=== PATIENT | male | born 1970 | race Hispanic/Latino ===

== ENCOUNTER 2022-06-11 07:23 | Day surgery (SDC) | payer OTHER ==
[2022-06-11] MEDS ORDERED: NA CHLORIDE 0.9% 1,000 ML ONE (07:47)
[2022-06-11 08:20] LABS: Absolute Lymphocytes (CBC) 0.7 K/uL (0.7-4.9); Lymphocytes % 11.9 % (15.3-44.8); MCV 79.2 fL (80-100); RBC Red Blood Cell Count 3.67 M/uL (4.33-5.43)
[2022-06-11 08:47] LABS: Potassium 3.6 mmol/L (3.5-5.1)
[2022-06-11] MEDS ORDERED: LIDOCAINE 1% MPF 5 ML VIAL ONE (08:49)
[2022-06-11] MEDS ORDERED: propofoL 200 MG/20 ML VIAL IV ONE ×2 (08:49→09:08)
[2022-06-11 10:17] VITALS: BP 135/83; TEMP 98.5; O2SAT 98
--- NOTE | 2022-06-11 10:28 | OP ---
Surgeon: Yaw Schrader MD Procedure Performed: Colonoscopy. Indication For Procedure: Anemia screening. Plan For Anesthesia: Monitored anesthesia care. Complexity: High due to the patient's comorbidities, cardiovascular history as well as morbid obesit y. Technique: After obtaining informed consent from the patient and explaining risks and complications, which include, but are not limited to bleeding, infection, perforation, and anesthesia complications . The patient was placed in the left lateral position. Sedation was given. From then on, digital r ectal exam was performed. The endoscope was advanced into the rectum and carefully guided up till th e cecum. The cecum was identified by the ileocecal valve and appendiceal orifice. Then, scope gradu ally withdrawn while carefully examining the mucosa. Quality of prep according to [place] Prep Score was 1 + 2 + 2, which is equal to 5 x 9. Scope withdrawal time was 20 minutes due to findings. The e ntire colon was quite redundant. Findings: 1.Redundant colon. 2.A 2 cm pedunculated polyp seen in the rectum, removed completely with snare polypectomy. A 2 cm s robin-pedunculated polyp seen in the descending colon, completely resected with snare polypectomy. Two 1 cm polyps seen in the transverse colon, completely removed with snare polypectomy. In the ascendi ng colon, 2 polyps were seen. One of them was 5 mm. This was removed by hot biopsy polypectomy; how ever, there was another larger 1 around 1.5 cm. This was removed with snare polypectomy. Complications: None. Tolerance To Anesthesia: Excellent. Postoperative Diagnoses: Multiple large polyps, redundant colon. Plan: 1.Await pathology results. 2.EGD, further workup for anemia. 3.Staged colonoscopy in 1 year due to multiple large polyps. 4.Avoid NSAIDs at this time. US/MODL Voice ID: [id number] Report ID: [id number]
== END 2022-06-11 10:18 | disposition home or self-care (01) ==
LOC: OR 07:23
PROVIDERS: ATTEND Internal Medicine Gastroenterology
PROC: 0DBL8ZX Excision of Transverse Colon, Via Natural or Artificial Opening Endoscopic, Diagnostic (ICD-10-PCS; 2022-06-11)
PROC: 0DBP8ZX Excision of Rectum, Via Natural or Artificial Opening Endoscopic, Diagnostic (ICD-10-PCS; 2022-06-11)
PROC: 0DBM8ZX Excision of Descending Colon, Via Natural or Artificial Opening Endoscopic, Diagnostic (ICD-10-PCS; 2022-06-11)
PROC: 0DBK8ZX Excision of Ascending Colon, Via Natural or Artificial Opening Endoscopic, Diagnostic (ICD-10-PCS; principal; 2022-06-11 08:30)
DX: D64.9 Anemia, unspecified (principal); E66.01 Morbid (severe) obesity due to excess calories; Z68.42 Body mass index [BMI] 45.0-49.9, adult; D12.4 Benign neoplasm of descending colon; D12.2 Benign neoplasm of ascending colon; D12.3 Benign neoplasm of transverse colon; Q43.8 Other specified congenital malformations of intestine
CPT/HCPCS: 85025; 80048; 36415; 82947 ×2; 88305; 45385; 45384; J2704 ×2; J2001; J7030

== ENCOUNTER 2022-06-12 09:37 | Inpatient (IN) | payer OTHER ==
--- OUTSIDE RECORDS SUMMARY | 2022-06-12 09:40 | XMS REPORT | Continuity of Care Document ---
:1970 Author Organization [facility] t Address [address] [place] [address] Care Team Providers Name Role Phone Derik Wood Attending Clinician REI MORELOS Attending Clinician Unavailable REI MORELOS Attending Clinician Unavailable 1, [facility] Attending Clinician Unavailable Rei Morelos MD Attending Clinician Only, [facility] Test Attending Clinician Unavailable Payers Payer Name Policy Type Policy Number Effective Date Expiration Date Nitin LIAO [facility] [id number] 2020 00:00:00 HMO Problems Condition Condition Condition Status Onset Resolution Last Treating Co mments Source Name Details Category Date Date Treatment Clinician Date SHORTNESS SHORTNESS Diagnosis Active 2013-03-17 Memoria OF BREATH OF BREATH 03-16 00:18:00 l Active 00:00: Johan 03/16/2013 00 [facility] [place] DYSPNEA DYSPNEA Diagnosis Active 2013-03-17 Memoria Active 03-16 00:18:00 l 03/16/2013 00:00: Luke barragan [place] CHF - CHF - Problem Resolve 2013-03-19 Mem oria Congestive Congestive d 22:02:31 l heart heart [place] failure failure Resolved Problem 03/19/2013 [place] Hypertensi Hypertens Problem Resolve 2013-03-19 Memoria on ion d 22:02:31 l Resolved [place] Problem 03/19/2013 [place] Hyperthyro Hyperthyr Problem Resolve 2013-03-19 Memoria idism oidism d 22:02:31 l Resolved Johan Problem 03/19/2013 [place] 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 l 21:43:39 l (finding) hemianopia Her paredes (finding) Active Problem 11/14/2021 [facility] Chronic Chronic Problem Active 2021-11-14 Me moria renal renal 21:43:39 l failure failure [place] syndrome syndrome (disorder) (disorder) Active Problem 11/14/2021 [facility] Congestive Congestiv Problem Active 2021-11-14 Memoria heart e heart 21:43:39 l failure failure Johan (disorder) (disorder) Active Problem 11/14/2021 [facility] Hypertensi Hypertens Problem Active 2021-11-14 Memoria ve reid 21:43:39 l disorder, disorder, Herm violetta systemic systemic arterial arterial (disorder) (disorder) Active Problem 11/14/2021 [facility] Diabetes Diabetes Problem Active 2021-11-14 Memoria mellitus mellitus 21:43:39 l type 2 type 2 Johan (disorder) (disorder) Active Problem 11/14/2021 [facility] Allergies, Adverse Reactions, Alerts Allergy Allergy Status Severity Reaction(s) Onset Inactive Treating Comm ents Source Name Type Date Date Clinician NO KNOWN Drug Active [facility] ALLERGIE Class [facility] Social History Social Habit Start Date Stop Date Quantity Comments Source Exposure to Not sure [facility] SARS-CoV-2 (event) [facility] Social History 2021-09-20 2021-09-[address] [facility] [address] 19:54:35 19:54:35 Sex Assigned At [birth year] [facility] 00:00:00 00:00:00 [facility] Smoking Status Start Date Stop Date Source Unknown if ever smoked [facility] Medications Ordered Filled Start Stop Current Ordering Indication Dosage Frequency Signature Comments Components Source Medication Medication Date Date Medication? Clinician (SIG) Name Name Hydralazine Yes 100 mg = 1 Memoria Hydrochlori 3-17 tab, PO, l de 100 MG 20:07: BID, # 60 Her paredes Oral Tablet 00 tab, 0 Refill(s) carvedilol Yes 12.5 mg = Me moria 12.5 mg 3-17 1 tab, PO, l oral tablet 20:07: BID, # 180 [place] 00 tab, 0 Refill(s) lisinopril Yes 40 mg = 1 Me moria 40 mg oral 3-17 tab, PO, l tablet 20:07: Daily, # Johan 00 30 tab, 0 Refill(s) amLODIPine Yes 5 mg = 1 Mem oria 5 mg oral 3-17 tab, PO, l tablet 20:07: Daily, # 30 tab, 0 Refill(s) 24 HR Yes 5 mg = 1 Memoria Glipizide 5 3-17 tab, PO, l MG Extended 20:07: Breakfast, # 30 tab, Tablet 1 Refill(s) Furosemide Yes 20 mg = 1 Me moria 20 MG Oral 3-17 tab, PO, l Tablet 20:07: Daily, # 30 tab, 0 Refill(s) lisinopril Yes Pierre R 40 mg, 2 Memoria 20 mg oral 03-17 Mcmillan tab, PO, l tablet 22:38: Daily, 30 Luke n 17 tab, Substituti on Allowed, TAB levothyroxi Yes Pierre R 100 Memoria ne 100 mcg 03-17 Mcmillan microgram, l (0.1 mg) 22:37: 1 tab, PO, Her paredes oral tablet 31 Daily, 30 tab, Substituti on Allowed, TAB hydrALAZINE Yes Pierre R 50 mg, 1 Memoria 50 mg oral 03-17 Mcmillan tab, PO, l tablet 22:37: TID, 08 tab, Substituti on Allowed, TAB hydrALAZINE Yes Pierre R 50 mg, 1 Memoria 50 mg oral 03-17 Mcmillan tab, PO, l tablet 22:37: TID, 90 00 tab, Substituti on Allowed, TAB doxazosin 4 Yes Pierre R 4 mg, 1 Memoria mg oral 03-17 Mcmillan tab, PO, l tablet 22:36: Daily, 30 Luke n 39 tab, Substituti on Allowed, TAB carvedilol Yes Pierre R 12.5 mg, 1 Memoria 12.5 mg 03-17 Mcmillan tab, PO, l oral tablet 22:36: BID, 60 Her paredes 26 tab, Substituti on Allowed, TAB lisinopril No Dony D 40 mg, 2 Memoria 03-17 Dichoso tab, l 14:00: Route: PO, Drug form: TAB, Daily, Dosing Weight 150.54, kg, Start date: 03/17/13 9:00:00, Duration: 30 day, Stop date: 04/15/13 9:00:00 hydrALAZINE 2012-0 No Yassir 50 mg, 2 Memoria 50 mg oral 03-17 Ahmed tab, l tablet 14:00: Sonbol Route: PO, Her Drug form: TAB, TID, Dosing Weight 150.54, kg, Start date: 03/17/13 9:00:00, Duration: 30 day, Stop date: 04/15/13 17:00:00 carvedilol 2012-0 No Dony D 12.5 mg, 1 Memoria 03-17 Dichoso tab, l 14:00: Route: PO, Johan 00 Drug form: TAB, BID, Dosing Weight 150.54, kg, Start date: 03/17/13 9:00:00, Duration: 30 day, Stop date: 04/15/13 17:00:00 doxazosin 2012-0 No Dony D 4 mg, 4 Me moria 03-17 Dichoso tab, l 14:00: Route: PO, Drug form: TAB, Daily, Dosing Weight 150.54, kg, Start date: 03/17/13 9:00:00, Duration: 30 day, Stop date: 04/15/13 9:00:00 Saline 2012-0 No Dony D 5 ml, Memoria Flush 0.9% 03-17 Dichoso Route: l 14:00: IVP, Drug Form: INJ, Dosing Weight 159.091, kg, Q12H, Start date: 03/17/13 9:00:00, Duration: 30 day, Stop date: 04/15/13 21:00:00 aspirin 81 2012-0 No Dony D 81 mg, 1 Memoria mg tablet, 03-17 Dichoso tab, l enteric 14:00: Route: PO, Herm violetta Drug form: ECTAB, Daily, Dosing Weight 159.091, kg, Start date: 03/17/13 9:00:00, Duration: 30 day, Stop date: 04/15/13 9:00:00 hydrALAZINE 2012-0 No Yassir 75 mg, 3 Memoria 25 mg oral 03-17 Ahmed tab, l tablet 14:00: Sonbol Route: PO, Her paredes Drug form: TAB, TID, Dosing Weight 150.54, kg, Start date: 03/17/13 9:00:00, Duration: 30 day, Stop date: 04/15/13 17:00:00 potassium 2012-0 No Dony D 40 mEq, 2 Memoria chloride - Dichoso tab, l 14:00: Route: PO, Johan Drug form: ERTAB, Daily, Dosing Weight 150.54, kg, Start date: 03/17/13 9:00:00, Duration: 2 day, Stop date: 03/18/13 9:00:00 Lasix 2012-0 No Yassir 40 mg, 4 Memori a 03-17 Ahmed mL, Route: l 13:00: Sonbol IV, Drug [place] 00 form: INJ, Q8H, Dosing Weight 150.54, kg, Start date: 03/17/13 8:00:00, Duration: 2 day, Stop date: 03/19/13 0:00:00 levothyroxi 2012-0 No Dony D 100 Mem oria ne 03-17 Dichoso microgram, l 12:30: 1 tab, [place] 00 Route: PO, Drug form: TAB, Before Breakfast, Dosing Weight 150.54, kg, Start date: 03/17/13 7:30:00, Duration: 30 day, Stop date: 04/15/13 7:30:00 hydrALAZINE 2012-0 No Dony D 10 mg, 0.5 Memoria 03-17 Dichoso mL, Route: l 06:11: IV, Drug [place] 00 form: INJ, ONCE, Dosing Weight 150.54, kg, Start date: 03/17/13 1:11:00, Stop date: 03/17/13 1:11:00 Saline 2012-0 No Dony D 5 ml, Memoria Flush 0.9% 03-17 Dichoso Route: l 05:43: IVP, Drug [place] 00 Form: INJ, Dosing Weight 159.091, kg, PRN, PRN Line Flush, Start date: 03/17/13 0:43:00, Duration: 30 day, Stop date: 04/16/13 0:42:00 nitroglycer No Dony D 0.4 mg, 1 Memoria in SL Tab 03-17 Dichoso tab, l 05:43: Route: SL, Johan Drug form: TAB, Q5Min, Dosing Weight 159.091, kg, PRN Chest Pain, Start date: 03/17/13 0:43:00, Duration: 3 doses or times, Stop date: Limited # of times levothyroxi No Pierre R 100 Memoria ne 100 mcg 03-17 Mcmillan microgram, l (0.1 mg) 03:10: 1 tab, PO, Her paredes oral tablet 15 Daily, 30 tab, Substituti on Allowed, TAB Klor-Con No 20 mEq, 1 Raul katerina M20 oral 03-17 tab, PO, l tablet, 03:09: Daily, Johan extended 34 Substituti release on Allowed, TAB furosemide No 80 mg, 1 Mem oria 80 mg oral 03-17 tab, PO, l tablet 03:09: Daily, 30 Luke barragan 13 tab, Substituti on Allowed, TAB carvedilol No Pierre R 12.5 mg, 1 Memoria 12.5 mg 03-17 Mcmillan tab, PO, l oral tablet 03:08: BID, 180 He rmvioletta 58 tab, Substituti on Allowed, TAB doxazosin 4 No Pierre R 4 mg, 1 Memoria mg oral 03-17 Mcmillan tab, PO, l tablet 03:08: Daily, 30 Luke barragan 32 tab, Substituti on Allowed, TAB hydrALAZINE No Pierre R 50 mg, 1 Memoria 50 mg oral 03-17 Mcmillan tab, PO, l tablet 03:07: TID, Johan 52 Substituti on Allowed, TAB lisinopril No Dony D 40 mg, 1 Memoria 40 mg oral 03-17 Dichoso tab, PO, l tablet 03:07: Daily, 30 Luke n 27 tab, Substituti on Allowed, TAB clonidine No Isaebl 0.2 mg, 2 Memoria 03-17 [place] Fraire tab, l 02:31: Route: Johan PIERRE Drug form: TAB, ONCE, kg, Start date: 03/16/13 21:31:00, Stop date: 03/16/13 21:31:00 furosemide 2012-0 No Isabel 60 mg, 6 Memoria 03-17 Norberto Fraire mL, Route: l 02:31: IVP, Drug [place] 00 form: INJ, ONCE, kg, Priority: STAT, Start date: 03/16/13 21:31:00, Stop date: 03/16/13 21:31:00 aspirin 325 2012- No Isabel 325 mg, 1 Memoria mg tablet 03-17 Norberto Fraire tab, l 02:31: Route: PO, [place] 00 Drug form: TAB, ONCE, kg, Priority: STAT, Start date: 03/16/13 21:31:00, Stop date: 03/16/13 21:31:00 Saline 2012- No Isabel 5 ml, Memoria Flush 0.9% 03-17 Norberto Fraire Route: l 02:31: IVP, Drug [place] Form: INJ, kg, PRN, PRN Line Flush, Start date: 03/16/13 21:31:00, Duration: 30 day, Stop date: 04/15/13 21:30:00 Vital Signs Vital Name Observation Time Observation Value Comments Source Systolic (mm Hg) 2021-09-20 19:50:00 Raul miguel Johan Diastolic (mm Hg) 2021-09-20 19:50:00 [facility] orial Johan Heart Rate 2021-09-20 19:50:00 [facility] Johan Respitory Rate 2021-09-20 19:50:00 [facility] al Johan Height 2021-09-20 19:50:00 167.64 cm [facility] Weight 2021-09-20 19:50:00 [facility] BMI Calculated 2021-09-20 19:50:00 Memori al [place] Systolic (mm Hg) 2013-03-17 20:43:00 Raul rial [place] Diastolic (mm Hg) 2013-03-17 20:43:00 [facility] orial [place] Heart Rate 2013-03-17 20:43:00 [facility] [place] Respitory Rate 2013-03-17 20:43:00 Chanda Hermosilloann Temperature Oral (F) 2013-03-17 20:43:00 [facility] 2013-03-17 17:36:00 Raul rial [place] Diastolic (mm Hg) 2013-03-17 17:36:00 Mem orial [place] Respitory Rate 2013-03-17 17:36:00 Memori al [place] Heart Rate 2013-03-17 17:36:00 [facility] Johan Temperature Oral (F) 2013-03-17 17:36:00 96.5 F [facility] Johan Heart Rate 2013-03-17 14:06:00 [facility] Jhoan Temperature Oral (F) 2013-03-17 14:06:00 98.4 F [facility] Johan Diastolic (mm Hg) 2013-03-17 14:06:00 Mem orial [place] Systolic (mm Hg) 2013-03-17 14:06:00 Raul rial [place] Respitory Rate 2013-03-17 14:06:00 Memori al [place] Weight 2013-03-17 05:52:00 [facility] [place] Height 2013-03-17 05:52:00 170.18 cm [facility] Johan Height 2013-03-17 05:38:00 172.72 cm [facility] Johan Weight 2013-03-17 05:38:00 [facility] [place] Procedures This patient has no known procedures. Encounters Start End Encounter Admission Attending Care Care Encounter Source Date/Time Date/Time Type Type Clinicians Facility Department ID 2021-11-12 2021-11-12 Ambulatory nullFlavo MNA [id number] Memoria 15:15:00 15:15:00 Pre-Reg r Neurology 02 dennis Prado 2021-11-12 2021-11-12 Outpatient MHIE MHANIRUDH [id number] Memoria 10:15:00 10:15:00 02 dennis Prado 2021-11-12 2021-11-12 Outpatient JHOAN WoodSCHEMELIA [id number] 10:15:00 10:15:00 Derik 02 James 2021-11-01 2021-11-01 Ambulatory nullFlavo MNA [id number] Memoria 16:45:00 16:45:00 Pre-Reg r Neurology 01 dennis Prado 2021-11-01 2021-11-01 Outpatient MHIE THIENIE [id number] Memoria 11:45:00 11:45:00 01 dennis Johan 2021-11-01 2021-11-01 Outpatient JHOAN Wood [facility] [id number] 11:45:00 11:45:00 Derik 01 James 2021-09-20 2021-09-21 Outpatient nullFlavo MNA [id number] Memoria 19:45:00 04:59:59 r Neurology 00 l [place] Prado 2021-09-20 2021-09-20 Outpatient JHOAN WoodSCHEMELIA [id number] 14:45:00 23:59:59 Derik 00 James 2021-09-20 2021-09-20 Outpatient [facility] [id number] Memoria 14:45:00 14:45:00 00 l Johan 2021-02-17 2021-02-17 Outpatient R REI MORELOS [facility] [id number] Univers 19:30:00 19:30:00 [facility] 2021-02-16 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 [id number] Univers 15:14:15 17:44:15 Visit Rei Morelos [place] [id number] 10 [place] of [place] [id number] [facility] [id number] [facility] [address] 2021-02-14 2021-02-14 Laboratory Only, [facility] Test [facility] [id number]. [id number] Univers 10:49:06 11:04:06 Only Rei Morelos [place] 350.1.13. 10 [place] [id number] [facility] [id number] [facility] [address] 2021-02-14 2021-02-14 Outpatient R [facility] [id number] Univers 10:45:00 10:45[facility] 2013-03-16 2013-03-17 OU nullFlavo [id number] Memoria 23:33:00 18:28:00 r Pepe 00 l Johan Results Test Description Test Time Test Comments Results Result Comments Source CHEMISTRY 2013-03-17 15:23:00 Test Item Value Reference Range Interpretation Comme nts T4 Free (test code = T4 Free) 1.11 0.76-1.46 N [facility]tbdfkzHESSYCPIG3438-09-00 15:23:00 Test Item Value Reference Range Interpretation Comments CK MB Index (test 2.3 See_Comment N [Automate d message] The code = CK MB Index) system w [employer] generated this result transmit dariana reference range : <=2.5. The reference range was not used to interpr et this result as obie l/abnormal. [facility] LakeFuvmfqdANABZWWEI6034-61-04 15:23:00 Test Item Value Reference Range Interpretation Comments CK MB (test code = CK MB) 4.2 0.5-3.6 H [facility] LakeJbcrduiZBNETIXYS5719-52-13 15:23:00 Test Item Value Reference Range Interpretation Comments Troponin-I (test code no gt See_Comment N [Auto mated message] The = Troponin-I) system which g enerated this result transmit dariana reference range : <=0.40. The reference r leonidas was not used to interpr et this result as obie l/abnormal. [facility] LakeAgwlvwgKWGKFMLFJ7033-02-95 15:23:00 Test Item Value Reference Range Interpretation Comments Total CK (test code = Total CK) 184 12-191 N [facility] LakeLeucsszZDWSFIQGN3110-54-24 08:05:00 Test Item Value Reference Range Interpretation Comments CK MB Index (test 2.5 See_Comment N [Automate d message] The code = CK MB Index) system w [employer] generated this result transmit dariana reference range : <=2.5. The reference range was not used to interpr et this result as obie l/abnormal. [facility] LakeYaszevxMMOZPWTCD9323-23-95 08:05:00 Test Item Value Reference Range Interpretation Comments CK MB (test code = CK MB) 4.3 0.5-3.6 H [facility] LakeTsqpzasKZRQSMIFI7691-11-05 08:05:00 Test Item Value Reference Range Interpretation Comments Troponin-I (test code 0.02 See_Comment N [Auto mated message] The = Troponin-I) system which g enerated this result transmit dariana reference range : <=0.40. The reference r leonidas was not used to interpr et this result as obie l/abnormal. [facility] LakeZrhxihoAIHWMEEDJ2442-54-01 08:05:00 Test Item Value Reference Range Interpretation Comments Total CK (test code = Total CK) 175 12-191 N [facility] HeightsLxngpmyBXBURIQRCS2455-79-70 04:00:00 Test Item Value Reference Range Interpretation Comments UA Sq Epi (test code Occasional /LPF N = UA Sq Epi) (03/16/2013 23:00:00) [facility] Center[facility]qollcsKQBIUYSQPB7306-20-39 04:00:00 Test Item Value Reference Range Interpretation Comments UA WBC (test code = UA 3-5 /HPF (03/16/2013 N WBC) 23:00:00) [facility]YfumeyrQYQTKRIOMI1659-66-11 04:00:00 Test Item Value Reference Range Interpretation Comments UA Bacteria (test code Occasional /HPF N = UA Bacteria) (03/16/2013 23:00:00) [facility]XuhqnxgUKTWAEHJBO6446-44-19 04:00:00 Test Item Value Reference Range Interpretation Comments UA RBC (test None Seen See_Comment N [Automated mes moises] code = UA RBC) (03/16/2013 The system ich 23:00:00) generated this result transmitted ref erence range: <=2. The reference range was not used to int erpret this result as normal/abnormal . [facility] HeightsNfxubjhDOUQZISYGA0524-96-62 04:00:00 Test Item Value Reference Range Interpretation Comments UA Leuk Est (test Negative (03/16/2013 N code = UA Leuk Est) 23:00:00) [facility] CenterVzvwvlgKGRPEMSILU0461-75-01 04:00:00 Test Item Value Reference Range Interpretation Comments UA Nitrite (test code Negative (03/16/2013 N = UA Nitrite) 23:00:00) [facility] HeightsPrhapenPPRPSGUOGB8972-12-33 04:00:00 Test Item Value Reference Range Interpretation Comments UA Urobilinogen (test code = UA 0.2 0.1-1.0 N Urobilinogen) [facility]KrlhqlqQHNRCXVTSD4833-09-80 04:00:00 Test Item Value Reference Range Interpretation Comments UA Blood (test code = Negative (03/16/2013 N UA Blood) 23:00:00) [facility] HeightsOudakbtLCQPZUDVVM7865-98-32 04:00:00 Test Item Value Reference Range Interpretation Comments UA Bili (test code = Negative *NA*(03/16/2013 UA Bili) 23:00:00) [facility]KxqexecUOMIVPCBRT5976-65-65 04:00:00 Test Item Value Reference Range Interpretation Comments UA pH (test code = UA pH) 7.0 1 5.0-8.0 N [facility] CenterPvkqhfzJBYQSYJZVB6073-62-76 04:00:00 Test Item Value Reference Range Interpretation Comments UA Spec Grav (test code = UA Spec 1.010 1 N Grav) [facility] CenterRudqptoRZISIFONSK5504-07-58 04:00:00 Test Item Value Reference Range Interpretation Comments UA Turbidity (test code = Clear (03/16/2013 N UA Turbidity) 23:00:00) [facility] CenterKgdympkZONXZTPUGC8234-48-09 04:00:00 Test Item Value Reference Range Interpretation Comments UA Color (test code = Yellow *NA*(03/16/2013 UA Color) 23:00:00) [facility] CenterVseqqidTTZRIKMGKF6082-70-74 04:00:00 Test Item Value Reference Range Interpretation Comments UA Protein (test code Negative mg/dL N = UA Protein) (03/16/2013 23:00:00) [facility] CenterGfscknkUTKKEWOWQN3677-84-21 04:00:00 Test Item Value Reference Range Interpretation Comments UA Ketones (test code Negative mg/dL = UA Ketones) *NA*(03/16/2013 23:00:00) [facility] CenterBgghgcuEIFPUZHIJT7365-68-94 04:00:00 Test Item Value Reference Range Interpretation Comments UA Glucose (test code Negative mg/dL N = UA Glucose) (03/16/2013 23:00:00) [facility] LakeKvjluwnCADWBZGNP3101-61-21 03:00:00 Test Item Value Reference Range Interpretation Comments Sodium Lvl (test code = Sodium Lvl) 141 135-145 N [facility] LakeOyyzdiwCRRNLMCXW4344-63-25 03:00:00 Test Item Value Reference Range Interpretation Comments BUN (test code = BUN) 21 7-22 N [facility] LakeYksbwagOGMAPJYPW0016-42-53 03:00:00 Test Item Value Reference Range Interpretation Comments Creatinine Lvl (test code = Creatinine 1.9 0.5-1.4 H Lvl) [facility] LakeNlonalzDUHBHEHJG6088-22-90 03:00:00 Test Item Value Reference Range Interpretation Comments Alk Phos (test code = Alk Phos) 100 39-136 N [facility] LakeBxfttzjMNIQTBUFE5175-40-62 03:00:00 Test Item Value Reference Range Interpretation Comments Bili Total (test code = Bili Total) 0.2 0.2-1.3 N [facility] LakeYkmrwohIAIEJWXEW4011-60-58 03:00:00 Test Item Value Reference Range Interpretation Comments Albumin Lvl (test code = Albumin Lvl) 3.5 3.5-5.0 N [facility] LakeCevmfeoQTVZYZDJD2756-86-78 03:00:00 Test Item Value Reference Range Interpretation Comments ALT (test code = ALT) 34 See_Comment N [Auto mated message] The system which ge nerated this result transmit dariana reference range : <=65. The reference range was not used to interpr et this result as obie l/abnormal. [facility] LakeKddngagRAUAGTMKQ7232-13-61 03:00:00 Test Item Value Reference Range Interpretation Comments Glucose Lvl (test code = Glucose Lvl) 121 70-99 H [facility] LakeJvyezllMYLJYJHHL2406-54-63 03:00:00 Test Item Value Reference Range Interpretation Comments Globulin (test code = Globulin) 3.5 2.0-4.0 N [facility] LakeRlumfkrVSRQQQACV5054-83-34 03:00:00 Test Item Value Reference Range Interpretation Comments A/G Ratio (test code = A/G Ratio) 1.0 0.7-1.6 N [facility] LakeRdqnnmnSXJRCJJVN4746-65-91 03:00:00 Test Item Value Reference Range Interpretation Comments AGAP (test code = AGAP) 11.4 10.0-20.0 N [facility] LakeOcvmkrnAUWUEBRIP4364-61-85 03:00:00 Test Item Value Reference Range Interpretation Comments B/C Ratio (test code = B/C Ratio) 11 6-25 N [facility] LakeQuvzyxiQXJUWMQJB9272-57-89 03:00:00 Test Item Value Reference Range Interpretation Comments AST (test code = AST) 18 See_Comment N [Auto mated message] The system which ge nerated this result transmit dariana reference range : <=37. The reference range was not used to interpr et this result as obei l/abnormal. [facility] LakePqarxyeWDQKKQEAE3038-00-63 03:00:00 Test Item Value Reference Range Interpretation Comments BNP (test code = BNP) 58 N [facility] LakeBqjnuigOSEWPIXCH0516-02-19 03:00:00 Test Item Value Reference Range Interpretation Comments Troponin-I (test code 0.02 See_Comment N [Auto mated message] The = Troponin-I) system which g enerated this result transmit dariana reference range : <=0.40. The reference r leonidas was not used to interpr et this result as obie l/abnormal. [facility] L[id number] 03:00:00 Test Item Value Reference Range Interpretation Comments CK MB (test code = CK MB) 5.4 0.5-3.6 H [facility] Lake[id number] 03:00:00 Test Item Value Reference Range Interpretation Comments CK MB Index (test 2.6 See_Comment H [Automate d message] The code = CK MB Index) system w [facility] generated this result transmit dariana reference range : <=2.5. The reference range was not used to interpr et this result as obie l/abnormal. [facility] RockFhxafzwLWNJZVOGOO0308-74-77 03:00:00 Test Item Value Reference Range Interpretation Comments RBC (test code = RBC) 4.49 4.70-6.10 L [facility] RockNbcwxriFKCRGIUOVE3513-79-97 03:00:00 Test Item Value Reference Range Interpretation Comments Hgb (test code = Hgb) 12.1 14.0-18.0 L [facility] RockDiufirwYLDIJWGBDY6381-28-45 03:00:00 Test Item Value Reference Range Interpretation Comments Hct (test code = Hct) 37.7 42.0-54.0 L [facility] RockEwklnknCOBFBERJDV7840-31-94 03:00:00 Test Item Value Reference Range Interpretation Comments MPV (test code = MPV) 8.5 7.4-10.4 N [facility] RockRuqgauyWQEJOFAXES1730-97-37 03:00:00 Test Item Value Reference Range Interpretation Comments WBC (test code = WBC) 9.8 3.7-10.4 N [facility] RockKrlkdzpRUILQJQUCF6582-58-99 03:00:00 Test Item Value Reference Range Interpretation Comments MCV (test code = MCV) 84.0 80.0-94.0 N [facility] RockSkkxntlVAFOSDCSQE1449-80-22 03:00:00 Test Item Value Reference Range Interpretation Comments MCH (test code = MCH) 27.0 pg 27.0-31.0 N [facility] RockHutgewtQLKDQJECZW7863-54-50 03:00:00 Test Item Value Reference Range Interpretation Comments MCHC (test code = MCHC) 32.2 32.0-36.0 N [facility] [id number] 03:00:00 Test Item Value Reference Range Interpretation Comments RDW (test code = RDW) 14.0 11.5-14.5 N [facility] [id number] 03:00:00 Test Item Value Reference Range Interpretation Comments Platelet (test code = Platelet) 257 133-450 N [facility] [id number] 03:00:00 Test Item Value Reference Range Interpretation Comments Plt Morph (test code = Normal (03/16/2013 N Plt Morph) 22:00:00) [facility] [id number] 03:00:00 Test Item Value Reference Range Interpretation Comments Segs (test code = Segs) 68.6 45.0-75.0 N [facility] [id number] 03:00:00 Test Item Value Reference Range Interpretation Comments Lymphocytes (test code = Lymphocytes) 18.5 20.0-40.0 L [facility] [id number] 03:00:00 Test Item Value Reference Range Interpretation Comments Monocytes (test code = Monocytes) 9.5 2.0-12.0 N [facility] [id number] 03:00:00 Test Item Value Reference Range Interpretation Comments Eosinophils (test code = 3.0 See_Comment N [A utomated message] The Eosinophils) system which ge nerated this result tra nsmitted reference range : <=4.0. The reference r leonidas was not used to int erpret this result as normal/abnormal . [facility] [id number] 03:00:00 Test Item Value Reference Range Interpretation Comments Basophils (test code = 0.4 See_Comment N [Aut omated message] The Basophils) system which ge nerated this result tra nsmitted reference range : <=1.0. The reference r leonidas was not used to int erpret this result as normal/abnormal . [facility] [id number] 03:00:00 Test Item Value Reference Range Interpretation Comments Segs-Bands # (test code = Segs-Bands #) 6.7 1.5-8.1 N [facility] [id number] 03:00:00 Test Item Value Reference Range Interpretation Comments Lymphocytes # (test code = Lymphocytes 1.8 1.0-5.5 N #) [facility] [id number] 03:00:00 Test Item Value Reference Range Interpretation Comments Monocytes # (test code 0.9 See_Comment H [Aut omated message] The = Monocytes #) system which generated this result tra nsmitted reference range : <=0.8. The reference r leonidas was not used to int erpret this result as normal/abnormal . [facility] [id number] 03:00:00 Test Item Value Reference Range Interpretation Comments Eosinophils # (test code 0.3 See_Comment N [A utomated message] The = Eosinophils #) system whic h generated this result tra nsmitted reference range : <=0.5. The reference r leonidas was not used to int erpret this result as normal/abnormal . [facility] [id number] 03:00:00 Test Item Value Reference Range Interpretation Comments Basophils # (test code 0.0 See_Comment N [Aut omated message] The = Basophils #) system which generated this result tra nsmitted reference range : <=0.2. The reference r leonidas was not used to int erpret this result as normal/abnormal . [facility] [id number] 03:00:00 Test Item Value Reference Range Interpretation Comments Anisocyte (test code = 1+ *ABN*(03/16/2013 A Anisocyte) 22:00:00) [id number] 03:00:00 Test Item Value Reference Range Interpretation Comments Total CK (test code = Total CK) 211 12-191 H [facility] [id number] 03:00:00 Test Item Value Reference Range Interpretation Comments eGFR (test code = eGFR) 43 [facility] [id number] 03:00:00 Test Item Value Reference Range Interpretation Comments Chloride Lvl (test code = Chloride Lvl) 102 95-109 N [facility] [id number] 03:00:00 Test Item Value Reference Range Interpretation Comments CO2 (test code = CO2) 31 24-32 N [facility] [id number] 03:00:00 Test Item Value Reference Range Interpretation Comments Total Protein (test code = Total 7.0 6.4-8.4 N Protein) [facility] [id number] 03:00:00 Test Item Value Reference Range Interpretation Comments Calcium Lvl (test code = Calcium Lvl) 9.1 8.5-10.5 N [facility] [id number] 03:00:00 Test Item Value Reference Range Interpretation Comments Potassium Lvl (test code = Potassium 3.4 3.5-5.1 L Lvl) [facility]
[2022-06-12 10:09] LABS: Absolute Lymphocytes (CBC) 0.6 K/uL (0.7-4.9); Hematocrit 23.4 % (39.6-49.0); MCV 79.6 fL (80-100); MPV 7.2 fL (7.6-11.3); RBC Red Blood Cell Count 2.93 M/uL (4.33-5.43)
[2022-06-12 10:12] LABS: Protime INR 1.18
[2022-06-12 10:14] LABS: SARS-CoV-2 Antigen Rapid Res Negative (Negative)
[2022-06-12 10:24] LABS: Albumin 2.6 g/dL (3.4-5.0); Bilirubin Total 0.5 mg/dL (0.2-1.0); Potassium 3.8 mmol/L (3.5-5.1); Protein, Total 5.8 g/dL (6.4-8.2)
--- NOTE | 2022-06-12 11:12 | ER ---
Nurse's Notes [facility] Name: Carlos Lira Age: 51 yrs Sex: Male : 1970 Arrival Date: 06/12/2022 Time: 09:40 Bed 17 Private MD: Diagnosis: GI Bleed/ Gastrointestinal hemorrhage, wxmiydwmfph-Emzj-pnzvwxsxptj Presentation: 06/12 09:59 Ebola Screen: Patient denies travel to an Ebola-affected area in the 21 days before 1 illness onset. Risk Assessment: Do you want to hurt yourself or someone else? Patient reports no desire to harm self or others. 09:59 Chief complaint: EMS states: Dark red bloody stool this morning, feels weak and dizzy ll1 today. 70's systolic initially, 150 ML bolus given, systolic 90's now. Fingerstick 174. 09:59 Method Of Arrival: EMS 1 10:01 Chief complaint: Patient states: patient states he has had 5 dark bloody stools this kr3 morning after having a colonoscopy yesterday. stated called an ambulance due to becoming dizzy after getting up to the bathroom. Coronavirus screen: Vaccine status: Patient reports receiving the 2nd dose of the covid vaccine. Client denies travel out of the [place] in the last 14 days. Ebola Screen: Patient denies travel to an Ebola-affected area in the 21 days before illness onset. Initial Sepsis Screen: Does the patient meet any 2 criteria? No. Patient's initial sepsis screen is negative. Does the patient have a suspected source of infection? No. Patient's initial sepsis screen is negative. Onset of symptoms was June 12, 2022. 10:01 Method Of Arrival: EMS kr3 10:01 Acuity: YESSENIA 3 kr3 Historical: - Allergies: 09:57 No Known Allergies; ll1 - PSHx: 09:57 colonscopy; ll1 - Immunization history:: Adult Immunizations up to date. - Family history:: not pertinent. - Social history:: Smoking status: Patient denies any tobacco usage or history of. - Hospitalizations: : No recent hospitalization is reported. Screenin:58 Abuse screen: Denies threats or abuse. Nutritional screening: No deficits noted. ll1 Tuberculosis screening: No symptoms or risk factors identified. Fall Risk IV access (20 points). Total Mckeon Fall Scale indicates No Risk (0-24 pts). Assessment: 10:00 General: Appears uncomfortable, Behavior is cooperative, appropriate for age. Pain: ll1 Complains of pain in abdomen Quality of pain is described as aching. GI: Abdomen is round Reports lower abdominal pain, cramping, bloody stool. 11:00 Reassessment: No changes from previously documented assessment. Patient and/or family ll1 updated on plan of care and expected duration. Pain level reassessed. Patient is alert, oriented x 3, equal unlabored respirations, skin warm/dry/pink. 11:50 Reassessment: No changes from previously documented assessment. ll1 13:00 Reassessment: No changes from previously documented assessment. Patient and/or family ll1 updated on plan of care and expected duration. Pain level reassessed. Vital Signs: 10:01 Pulse 66; Resp 18; Pulse Ox 99% on R/A; kr3 11:07 BP 104 / 54; rn 11:51 BP 106 / 61; Pulse 63; ll1 12:31 Weight 138.35 kg; Height 5 ft. 8 in. (172.72 cm); iw 13:10 BP 113 / 60; Pulse 63; Resp 14; Pulse Ox 100% ; ll1 12:31 Body Mass Index 46.37 (138.35 kg, 172.72 cm) iw ED Course: 09:40 Patient arrived in ED. rn 09:40 Blaine Mari MD is Attending Physician. rn 09:57 Socorro Reilly, MARIANA is Primary Nurse. ll1 09:57 Arm band placed on Patient placed in an exam room, on a stretcher. ll1 09:58 No provider procedures requiring assistance completed. Maintain EMS IV. Dressing ll1 intact. Good blood return noted. Site clean \T\ dry. Gauge \T\ site: 18 G L AC. 10:00 Ptt, Activated Sent. kr3 10:00 Protime (+inr) Sent. kr3 10:00 SARS RAPID Sent. kr3 10:07 Triage completed. kr3 10:11 SARS RAPID Sent. iw 11:12 Hi Mari MD is Hospitalizing Provider. rn 11:52 Patient has correct armband on for positive identification. Bed in low position. Call ll1 light in reach. Side rails up X 1. Client placed on continuous cardiac and pulse oximetry monitoring. NIBP monitoring applied. youth nutritional monitor on. 06/13 04:39 T\T\S collected, blood band applied to patient. Inserted saline lock: 20 gauge in left ds4 forearm, using aseptic technique. Blood collected. Administered Medications: 06/12 09:59 Drug: NS 0.9% 500 ml Route: IV; Rate: bolus; Site: right antecubital; kr3 11:52 Follow up: Response: No adverse reaction; IV Status: Completed infusion; IV Intake: ll1 500ml Medication: 09:59 VIS not applicable for this client. ll1 Intake: 11:52 IV: 500ml; Total: 500ml. ll1 Outcome: 11:12 Decision to Hospitalize by Provider. rn 06/13 08:30 Patient left the ED. kj1 Signatures: Sanaz Oleary RN Blaine Cunningham MD MD rn Swanson, Donovan ds4 Georgie Gutiérrez kj1 Socorro Reilly RN RN ll1 Laquita Huizar RN RN kr3
--- NOTE | 2022-06-12 11:12 | EDPHYS ---
Physician Documentation [facility] Name: Carlos Lira Age: 51 yrs Sex: Male : 1970 Arrival Date: 06/12/2022 Time: 09:40 Bed 17 Private MD: ED Physician Blaine Mari HPI: 06/12 11:07 This 51 yrs old Male presents to ER via EMS with complaints of rectal bleeding.rn 11:07 The patient presents to the emergency department with rectal bleeding, a moderate rn amount, maroon with bowel movement. Onset: The symptoms/episode began/occurred this morning. Abdominal pain: none is appreciated. Modifying factors: The symptoms are alleviated by nothing, the symptoms are aggravated by bowel movement. Associated signs and symptoms: Pertinent positives: dizziness when standing, Pertinent negatives: chest pain, fever, shortness of breath, syncope, vomiting. Severity of symptoms: At their worst the symptoms were moderate in the emergency department the symptoms have improved. The patient has not experienced similar symptoms in the past. The patient has been recently seen by a physician:. Pt seen and scoped by elvis yesterday for anemia, restarted aspirin this AM and had maroon blood with stool this AM. Reports felt anxious and lightheaded at home. No chest pain or sob. No syncope. Feels better now. . Historical: - Allergies: :57 No Known Allergies; ll1 - PSHx: :57 colonscopy; ll1 - Immunization history:: Adult Immunizations up to date. - Family history:: not pertinent. - Social history:: Smoking status: Patient denies any tobacco usage or history of. - Hospitalizations: : No recent hospitalization is reported. ROS: 11:07 Constitutional: Negative for fever, chills, and weight loss, Eyes: Negative for injury, rn pain, redness, and discharge, Neck: Negative for injury, pain, and swelling, Cardiovascular: Negative for chest pain, palpitations, and edema, Respiratory: Negative for shortness of breath, cough, wheezing, and pleuritic chest pain, Abdomen/GI: Negative for abdominal pain, nausea, vomiting, diarrhea, and constipation,+ blood in stool Back: Negative for injury and pain, MS/Extremity: Negative for injury and deformity, Skin: Negative for injury, rash, and discoloration, Neuro: Negative for headache, weakness, numbness, tingling, and seizure. Exam: 11:07 Constitutional: This is a well developed, well nourished patient who is awake, alert, rn and in no acute distress. Head/Face: Normocephalic, atraumatic. Cardiovascular: Regular rate and rhythm. No pulse deficits. Respiratory: No increased work of breathing, no retractions or nasal flaring. Abdomen/GI: Soft, non-tender Skin: Warm, dry MS/ Extremity: Pulses equal, no cyanosis. Neuro: Awake and alert, GCS 15 Vital Signs: 10:01 Pulse 66; Resp 18; Pulse Ox 99% on R/A; kr3 11:07 BP 104 / 54; rn 11:51 BP 106 / 61; Pulse 63; ll1 12:31 Weight 138.35 kg; Height 5 ft. 8 in. (172.72 cm); iw 13:10 BP 113 / 60; Pulse 63; Resp 14; Pulse Ox 100% ; ll1 12:31 Body Mass Index 46.37 (138.35 kg, 172.72 cm) iw MDM: 09:40 Patient medically screened. rn 11:07 Differential diagnosis: Post colonoscopy bleeding, bleeding from polyp removal. Data rn reviewed: vital signs, nurses notes, lab test result(s), and as a result, I will admit patient. Counseling: I had a detailed discussion with the patient and/or guardian regarding: the historical points, exam findings, and any diagnostic results supporting the discharge/admit diagnosis, lab results, the need for further work-up and treatment in the hospital. Admission orders: after a detailed discussion of the patient's condition and case, the admit orders are written by me. ED course: Discussed case with Dr. Schrader, will admit here to hospitalist service, keep NPO, place on zosyn, and serial h/h. . 06/12 09:40 Order name: CBC with Diff; Complete Time: 10:41 rn 06/12 09:40 Order name: CMP; Complete Time: 10:41 rn 06/12 09:40 Order name: Lipase; Complete Time: 10:41 rn 06/12 09:40 Order name: Protime (+inr); Complete Time: 10:41 rn 06/12 09:40 Order name: Ptt, Activated; Complete Time: 10:41 rn 06/12 09:40 Order name: SARS RAPID; Complete Time: 10:41 rn 06/12 13:30 Order name: Phosphorus EDMS 06/12 13:30 Order name: Creatine Phosphokinase EDMS 06/12 13:30 Order name: Magnesium EDMS 06/12 16:52 Order name: Glucose, Ancillary Testing EDMS 06/12 17:45 Order name: CBC without Diff EDMS 06/12 21:08 Order name: Glucose, Ancillary Testing EDMS 06/13 01:39 Order name: Glucose, Ancillary Testing EDMS 06/13 02:56 Order name: CBC with Automated Diff EDMS 06/12 09:40 Order name: IV Saline Lock; Complete Time: 10:00 rn 06/12 09:40 Order name: Labs collected and sent; Complete Time: 10:00 rn 06/12 11:45 Order name: NPO; Complete Time: 11:52 EDMS 06/13 02:57 Order name: Basic Metabolic Panel EDMS 06/13 04:54 Order name: ABO/RH no charge EDMS 06/13 05:32 Order name: Glucose, Ancillary Testing EDMS 06/13 05:53 Order name: Type and Screen EDMS 06/13 06:48 Order name: CBC without Diff EDMS Administered Medications: 09:59 Drug: NS 0.9% 500 ml Route: IV; Rate: bolus; Site: right antecubital; kr3 11:52 Follow up: Response: No adverse reaction; IV Status: Completed infusion; IV Intake: ll1 500ml Disposition Summary: 06/12/22 11:12 Hospitalization Ordered Hospitalization Status: Inpatient Admission rn Provider: Hi Mari rn Condition: Stable rn Problem: new rn Symptoms: have improved rn Bed/Room Type: Standard rn Location: Telemetry/MedSurg (Inpatient)(06/13/22 07:21) jaCandy Room Assignment: 429(06/13/22 07:21) phoebe Diagnosis - GI Bleed/ Gastrointestinal hemorrhage, unspecified - Post-colonoscopy rn Forms: - Medication Reconciliation Form rn - SBAR form rn Signatures: Dispatcher [employer] EDMS Blaine Mari MD MD rn Garcia, Cindy, RN RN cg Aguilar, Jose, RN RN ja1 Socorro Reilly RN RN 1 Laquita Huizar RN RN kr3 Corrections: (The following items were deleted from the chart) 18:54 11:12 Telemetry/MedSurg (Inpatient) cg 18:54 11:12 rn sherrell 12 07:21 06/12 18:54 [facility] ER [facility] ja1 06/13 07:21 12 18:54 [facility] ja1
[2022-06-12] MEDS ORDERED: FENTANYL CITR 100 MCG/2 ML IV PRN (12:01)
[2022-06-12] MEDS ORDERED: SODIUM CHLORIDE 0.9% 10ML INJ IV PRN (12:01)
[2022-06-12] MEDS ORDERED: ACETAMINOPHEN 325 MG TABLET PO PRN (12:02)
[2022-06-12] MEDS ORDERED: ONDANSETRON 4 MG/2 ML VIAL IV PRN (12:08)
[2022-06-12] MEDS ORDERED: GLUCAGON 1 MG/VIAL IM PRN (12:09)
[2022-06-12] MEDS ORDERED: D50W 25 GM/50 ML SYRINGE IV PRN (12:09)
--- NOTE | 2022-06-12 12:14 | P.HP ---
Certification for Inpatient Patient admitted to: Inpatient With expected LOS: >2 Midnights Patient will require the following post-hospital care: None Practitioner: I am a practitioner with admitting privileges, knowledge of patient current condition, hospital course, and medical plan of care. Services: Services provided to patient in accordance with Admission requirements found in Title 42 Section 412.3 of the Code of Federal Regulations Patient History Date of Service: 06/12/22 Reason for admission: Gastrointestinal bleeding. History of Present Illness: Patient is a 51-year-old male with a past medical history significant for morbid obesity who presents with complaint of rectal bleeding. Patient reported that he had a colonoscopy yesterday for assessment of anemia. Patient reported that he woke up this morning had a bowel movement and rectal bleeding. Patient reported that he has been to the bathroom 5 times and always had rectal bleeding every time. Patient reported associated signs and symptoms of dizziness, weakness, fatigue and diaphoresis. Patient denies any other signs and symptoms. Symptoms are aggravated or relieved by nothing. Patient decided to present to the hospital due to worsening symptoms. Allergies No Known Allergies Allergy (Verified 06/07/22 12:44) Home Medications: Carvedilol [Coreg] 12.5 mg PO BID #0 tablet 02/18/12 Aspirin [Low Dose Aspirin EC] 81 mg PO DAILY 06/07/22 Furosemide [Lasix] 20 mg PO BIDL 06/07/22 Glipizide [Glipizide ER] 5 mg PO DAILY 06/07/22 Hydralazine HCl 100 mg PO BID 06/07/22 Lisinopril [Zestril] 40 mg PO DAILY 06/07/22 - Past Medical/Surgical History Diabetic: No -: DM2 -: Hypertension -: Obesity Past Surgical History: Reviewed- Non-Contributory - Family History Mother -: Diabetes Father -: Other (see notes) (VT and CHF) - Social History Smoking Status: Never smoker Alcohol use: Yes CD- Drugs: No Caffeine use: Yes Place of Residence: Home Review of Systems General: Sweats, Weakness, Other (Fatigue ) Eyes: Unremarkable ENT: Unremarkable Respiratory: Unremarkable Cardiovascular: Unremarkable Gastrointestinal: Unremarkable Genitourinary: Unremarkable Musculoskeletal: Unremarkable Integumentary: Unremarkable Neurological: Other (Dizziness ) Lymphatics: Unremarkable Physical Examination - Physical Exam General: Alert, In no apparent distress, Oriented x3, Cooperative HEENT: Atraumatic, PERRLA, Mucous membr. moist/pink, EOMI, Sclerae nonicteric Neck: Supple, 2+ carotid pulse no bruit, No LAD, Without JVD or thyroid abnormality Respiratory: Clear to auscultation bilaterally, Normal air movement Cardiovascular: No edema, Regular rate/rhythm, Normal S1 S2 Capillary refill: <2 Seconds Gastrointestinal: Normal bowel sounds, Soft and benign, No tenderness Musculoskeletal: No clubbing, No contractures, No tenderness Integumentary: No rashes, No breakdown, No significant lesion Neurological: Normal speech, Normal tone, Normal affect Lymphatics: No axilla or inguinal lymphadenopathy - Studies Laboratory Data (last 24 hrs) 06/12/22 09:49: PT 13.0 H, INR 1.18, APTT 29.6 06/12/22 09:49: Sodium 139, Potassium 3.8, BUN 26 H, Creatinine 2.32 H, Glucose 168 H, Total Bilirubin 0.5, AST 11 L, ALT 18, Alkaline Phosphatase 51, Lipase 88 06/12/22 09:49: WBC 8.80, Hgb 7.8 L D, Hct 23.4 L, Plt Count 246 Assessment and Plan - Plan --Gastrointestinal bleeding. Gastroenterology consulted. Recommended placing patient on Zosyn IV. We will keep patient NPO. Continue Protonix. H&H stable. We will continue to monitor hemoglobin and transfuse if less than 7.0. Furt her management per commercial leasing manager. --DM2. BS monitoring with sliding scale insulin. --Class III obesity. Likely secondary to excess calorie intake and sedentary lifestyle. Patient counseled on weight reduction, diet and excise therapy. --PATRICIA. Nephrology consulted. We will await further recommendations. -- Hypertension. Patient currently hypotensive. We will hold off on BP meds. --DVT prophylaxis with SCDs. Discharge Plan: Home Plan to discharge in: Greater than 2 days - Advance Directives Does patient have a Living Will: No Does patient have a Durable POA for Healthcare: No - Code Status/Comfort Care Code Status Assessed: Yes Physician Review: Patient Assessed, Agree with Above Assessment and Plan Critical Care: No
[2022-06-12] MEDS ORDERED: DEXTROSE 10%-WATER 125 ML IV PRN (12:38)
[2022-06-12] MEDS: INSULIN -REGULAR HUMAN 50 UNIT/0.5 ML ML SQ SCH ×3 (13:00→21:00)
[2022-06-12 13:30] LABS: Magnesium 2.6 mg/dL (1.8-2.4)
[2022-06-12 14:46] VITALS: BMI 46.3
[2022-06-12] MEDS ORDERED: NA CHLORIDE 0.9% 100 ML IV ONE (16:11)
[2022-06-12] MEDS ORDERED: PIPERACIL/TAZO 3.375 GM VIAL IV ONE (16:12)
[2022-06-12] MEDS: PIPER TAZO 3.375 GM in NA CHLORIDE 0.9% 100 ML IV SCH (16:49)
[2022-06-12 17:37] LABS: Hematocrit 24.7 % (39.6-49.0); MCV 79.7 fL (80-100); MPV 7.1 fL (7.6-11.3); RBC Red Blood Cell Count 3.09 M/uL (4.33-5.43)
[2022-06-12] MEDS: PANTOPRAZOLE 40 MG INJ IVP SCH (21:00)
[2022-06-12] MEDS ORDERED: PANTOPRAZOLE 40 MG INJ ONE (21:29)
[2022-06-13] MEDS: INSULIN -REGULAR HUMAN 50 UNIT/0.5 ML ML SQ SCH ×6 (01:00→20:45)
[2022-06-13] MEDS: PIPER TAZO 3.375 GM in NA CHLORIDE 0.9% 100 ML IV SCH ×2 (01:00→08:58)
[2022-06-13] MEDS ORDERED: NA CHLORIDE 0.9% 100 ML IV ONE (01:37)
[2022-06-13] MEDS ORDERED: PIPERACIL/TAZO 3.375 GM VIAL IV ONE (01:37)
[2022-06-13 02:49] LABS: Absolute Lymphocytes (CBC) 0.8 K/uL (0.7-4.9); Hematocrit 21.3 % (39.6-49.0); Lymphocytes % 15.9 % (15.3-44.8); MCV 79.1 fL (80-100); MPV 7.2 fL (7.6-11.3)
[2022-06-13 02:57] LABS: Potassium 3.6 mmol/L (3.5-5.1)
[2022-06-13] MEDS ORDERED: NA CHLORIDE 0.9% 250 ML IV SCH (04:00)
[2022-06-13 06:47] LABS: Hematocrit 22.1 % (39.6-49.0); MCV 79.4 fL (80-100); MPV 6.9 fL (7.6-11.3); RBC Red Blood Cell Count 2.79 M/uL (4.33-5.43)
[2022-06-13] MEDS ORDERED: KCL 20 MEQ/100 mL IVPB 20 MEQ/100 ML BAG IV SCH (08:00)
[2022-06-13] MEDS: PANTOPRAZOLE 40 MG INJ IVP SCH ×2 (08:49→20:44)
--- NOTE | 2022-06-13 10:17 | P.CNS ---
Date of Consult: 06/13/22 Reason for Consult: PATRICIA/ CKD Requesting Physician: Hi Mari Primary Care Provider: Dr. Mathias Chief Complaint: Gastrointestinal bleeding. History of Present Illness: Patient is a 51-year-old male with a past medical history significant for morbid obesity who presents with complaint of rectal bleeding. Patient reported that he had a colonoscopy yesterday for assessment of anemia. Patient reported that he woke up this morning had a bowel movement and rectal bleeding. Patient reported that he has been to the bathroom 5 times and always had rectal bleeding every time. Patient reported associated signs and symptoms of dizziness, weakness, fatigue and diaphoresis. Patient denies any other signs and symptoms. Symptoms are aggravated or relieved by nothing. Patient decided to present to the hospital due to worsening symptoms. 11:07 This 51 yrs old Male presents to ER via EMS with complaints of rectal bleeding.rn 11:07 The patient presents to the emergency department with rectal bleeding, a moderate rn amount, maroon with bowel movement. Onset: The symptoms/episode began/occurred this morning. Abdominal pain: none is appreciated. Modifying factors: The symptoms are alleviated by nothing, the symptoms are aggravated by bowel movement. Associated signs and symptoms: Pertinent positives: dizziness when standing, Pertinent negatives: chest pain, fever, shortness of breath, syncope, vomiting. Severity of symptoms: At their worst the symptoms were moderate in the emergency department the symptoms have improved. The patient has not experienced similar symptoms in the past. The patient has been recently seen by a physician:. Pt seen and scoped by elvis yesterday for anemia, restarted aspirin this AM and had maroon blood with stool this AM. Reports felt anxious and lightheaded at home. No chest pain or sob. No syncope. Feels better now. Allergies No Known Allergies Allergy (Verified 06/07/22 12:44) Home medications list reviewed: Yes Home Medications: Carvedilol [Coreg] 12.5 mg PO BID #0 tablet 02/18/12 Aspirin [Low Dose Aspirin EC] 81 mg PO DAILY 06/07/22 Furosemide [Lasix] 20 mg PO BIDL 06/07/22 Glipizide [Glipizide ER] 5 mg PO DAILY 06/07/22 Hydralazine HCl 100 mg PO BID 06/07/22 Lisinopril [Zestril] 40 mg PO DAILY 06/07/22 Amlodipine [Norvasc] 5 mg PO DAILY 06/13/22 - Past Medical/Surgical History Diabetic: No -: DM2 -: Hypertension -: Obesity -: CKD III (Dr. Mathias) -: Iron Deficiency Anemia -: Diastolic CHF -: LYNDSAY - Family History Mother Medical History: Diabetes Father Medical History: Other (see notes) (PR and CHF) - Social History Smoking Status: Never smoker Alcohol use: Yes CD- Drugs: No Caffeine use: Yes Place of Residence: Home Review of Systems 10-point ROS is otherwise unremarkable General: Weakness Respiratory: SOB with Excertion Cardiovascular: Edema Physical Examination Temp Pulse Resp BP Pulse Ox 98.3 F 68 18 172/79 H 98 06/13/22 08:49 06/13/22 08:49 06/13/22 08:49 06/13/22 08:49 06/13/22 08:49 General: In no apparent distress, Oriented x3, Cooperative HEENT: Atraumatic Neck: Supple Respiratory: Clear to auscultation bilaterally Cardiovascular: Regular rate/rhythm, Edema Gastrointestinal: Soft and benign, Non-distended Musculoskeletal: No clubbing, No contractures Integumentary: No rashes, No cyanosis Neurological: Normal speech Laboratory Data (last 24 hrs) 06/12/22 09:49: Sodium 139, Potassium 3.8, BUN 26 H, Creatinine 2.32 H, Glucose 168 H, Total Bilirubin 0.5, AST 11 L, ALT 18, Alkaline Phosphatase 51, Lipase 88 Conclusions/Impression: PATRICIA in the setting of a GI bleed & relative hypotension at admission, ATN? CKD III with proteinuria (Baseline Cr 1.78 - 2.32) -No NSAIDs HTN with CKD/ CHF -Continue Coreg -Continue Amlodipine -Continue Hydralazine -Start spironolactone daily Diastolic CHF, chronic LE Edema -Low sodium diet -Start Spironolactone daily DM II with CKD -RISS Hypoalbuminemia -Advance nutrition as indicated Anemia in chronic illness Anemia due to blood loss/ GI bleed Iron Deficiency -Monitor H&H -Transfuse PRBC prn -Retacrit X1 Acute infective cystitis? -Follow up culture Case reviewed with Dr. Mari Thank you kindly for the consultation
[2022-06-13] MEDS: HYDRALAZINE HCL 20 MG/ML VIAL IV PRN ×2 (10:22→15:57)
[2022-06-13 13:28] LABS: Specific Gravity 1.013 (1.005-1.030); Urine Bilirubin NEGATIVE (Negative); Urine Blood Negative (Negative); Urine Clarity Clear (Clear); Urine Color Light-Yellow (Yellow); Urine Glucose NEGATIVE (Negative); Urine Mucus Slight /HPF (None Seen); Urine Protein 1+ (Negative); Urine Urobilinogen Normal (Normal)
[2022-06-13 13:29] LABS: Urine Bacteria <20 /HPF (<20)
[2022-06-13 15:59] LABS: Hematocrit 26.3 % (39.6-49.0)
[2022-06-13] MEDS ORDERED: AMLODIPINE 5 MG TAB PO ONE (16:51)
[2022-06-13] MEDS ORDERED: LABETALOL 20 MG/4ML SYRINGE IV ONE (16:51)
[2022-06-13] MEDS: HYDRALAZINE HCL 25 MG TABLET PO SCH (20:43)
[2022-06-13] MEDS: carvediloL 12.5 MG TAB PO SCH (20:44)
--- NOTE | 2022-06-13 23:36 | P.PN ---
Date of Service: 06/13/22 Subjective: 1 maroon BM last night, no other bleeding no nausea/vomiting, no abd pain no dysuria ROS: A complete review of systems was performed and is negative except as mentioned above Physical Exam: Gen: NAD, AOx3 HEENT: normal conjunctiva, sclera anicteric CV: regular rate & rhythm, 1+ b/l lower extremity edema Pulm: non-labored respirations, clear bilaterally Abd: soft, non-tender, non-distended Neuro: normal speech, normal affect, moves all extremities vitals reviewed Problem List acute on chronic blood loss anemia secondary to GI bleed s/p c-scope DM2 PATRICIA on CKD - unknown baseline HTN CHF, chronic, unknown EF pt with one dark maroon stool last night hgb downtrending still BP better, feelign more like his "normal" self no abd pain dc antibiotics liquid diet GI consulted transfuse to maintain Hgb >8, 1uPRBC ordered restart home antihypertensives Code: full Dispo: home, ~24-48hrs Time Spent Managing Pts Care (In Minutes): 35
[2022-06-14 05:48] LABS: MCV 79.9 fL (80-100); MPV 6.9 fL (7.6-11.3); RBC Red Blood Cell Count 2.88 M/uL (4.33-5.43)
[2022-06-14 06:02] LABS: Magnesium 2.6 mg/dL (1.6-2.4); Potassium 3.6 mmol/L (3.5-5.1)
[2022-06-14] MEDS: INSULIN -REGULAR HUMAN 50 UNIT/0.5 ML ML SQ SCH ×2 (07:30→11:30)
[2022-06-14] MEDS: HYDRALAZINE HCL 25 MG TABLET PO SCH (07:48)
[2022-06-14] MEDS: PANTOPRAZOLE 40 MG INJ IVP SCH (07:49)
[2022-06-14] MEDS: carvediloL 12.5 MG TAB PO SCH (07:49)
[2022-06-14 08:50] VITALS: O2SAT 99
[2022-06-14] MEDS ORDERED: SPIRONOLACTONE 25 MG TABLET PO SCH (09:00)
[2022-06-14] MEDS ORDERED: EPOETIN ALFA 10,000 UNIT/ML VIAL SQ SCH (09:00)
[2022-06-14] MEDS ORDERED: AMLODIPINE 5 MG TAB PO SCH (09:00)
[2022-06-14] MEDS ORDERED: POTASSIUM CL SA 10 MEQ TAB PO ONE (09:00)
--- NOTE | 2022-06-14 11:02 | P.PN ---
Nephrology note: (S) Pt denies any acute complaints, denies dyspnea, denies any further hematochezia General: In no apparent distress, Oriented x3, Cooperative HEENT: Atraumatic Neck: Supple Respiratory: Clear to auscultation bilaterally Cardiovascular: Regular rate/rhythm, Edema Gastrointestinal: Soft and benign, obese but Non-distended Musculoskeletal: No clubbing, No contractures Ext: 1-2+ distal pitting edema b/l Integumentary: No rashes, No cyanosis Neurological: Normal speech, awake, alert, non focal Laboratory Data (last 24 hrs) Conclusions/Impression: Stage 1 PATRICIA, underlying CKD IIIb with proteinuria (Baseline Cr 1.78 - 2.32), Cr levels have fluctuated -Cont close monitoring as an OP, ok to cont ACEi for now HTN with CKD/ CHF -Cont current meds, cont loop diuretics, can assess as an OP for need for/tolerance to an aldosterone antagonist Diastolic CHF, chronic LE Edema -As per above DM II with CKD -Target strict glycemic control Anemia in chronic illness Anemia due to blood loss/ GI bleed Iron Deficiency -PO iron, KATI dosing if Hb remains < 10 and T sat improved
[2022-06-14 12:03] VITALS: BP 124/68; TEMP 98.3
== END 2022-06-14 11:55 | disposition home or self-care (01) | DRG 378 ==
LOC: ER 09:37 → ERHOLD 11:37 → 4TH 06-13 08:01 → OBSVTOIN 06-13 17:06 → 4TH 06-13 19:28
PROVIDERS: ADMIT Hospitalist; ATTEND Hospitalist
PROC: 30233N1 Transfusion of Nonautologous Red Blood Cells into Peripheral Vein, Percutaneous Approach (ICD-10-PCS; principal; 2022-06-13)
DX: K92.2 Gastrointestinal hemorrhage, unspecified (principal); D62 Acute posthemorrhagic anemia; I13.0 Hypertensive heart and chronic kidney disease with heart failure and stage 1 through stage 4 chronic kidney disease, or unspecified chronic kidney disease; N17.9 Acute kidney failure, unspecified; I50.32 Chronic diastolic (congestive) heart failure; Z68.42 Body mass index [BMI] 45.0-49.9, adult; N18.32 Chronic kidney disease, stage 3b; E11.22 Type 2 diabetes mellitus with diabetic chronic kidney disease; D63.8 Anemia in other chronic diseases classified elsewhere; E61.1 Iron deficiency; G47.33 Obstructive sleep apnea (adult) (pediatric); E88.09 Other disorders of plasma-protein metabolism, not elsewhere classified; I95.9 Hypotension, unspecified; Z20.822 Contact with and (suspected) exposure to COVID-19; E66.01 Morbid (severe) obesity due to excess calories; Z71.3 Dietary counseling and surveillance; Z98.890 Other specified postprocedural states; Z79.82 Long term (current) use of aspirin; Z79.899 Other long term (current) drug therapy; Z83.3 Family history of diabetes mellitus; Z82.49 Family history of ischemic heart disease and other diseases of the circulatory system
CPT/HCPCS: 36415; 80048; 80053; 81001; 82550; 82947; 83690; 83735; 84100; 85014; 85018; 85025; 85027; 85610; 85730; 86850; 86900; 86901; 87086; 87088; 87811; 88305; 96360; 96361; 99284; C9113; G0378; J0360; J2001; J2250; J2543; J2704; J3480; J7030; J7050; P9016

== ENCOUNTER 2022-08-22 07:55 | Day surgery (SDC) | payer OTHER ==
[2022-08-22] MEDS ORDERED: NA CHLORIDE 0.9% 1,000 ML ONE (08:12)
[2022-08-22] MEDS ORDERED: LIDOCAINE 1% MPF 5 ML VIAL ONE ×2 (10:08→10:39)
[2022-08-22] MEDS ORDERED: propofoL 200 MG/20 ML VIAL IV ONE ×2 (10:08→10:39)
[2022-08-22 11:31] VITALS: BP 128/64; TEMP 98.8; O2SAT 97
== END 2022-08-22 11:15 | disposition home or self-care (01) ==
LOC: OR 07:55
PROVIDERS: ATTEND Internal Medicine Gastroenterology
PROC: 0DJ08ZZ Inspection of Upper Intestinal Tract, Via Natural or Artificial Opening Endoscopic (ICD-10-PCS; principal; 2022-08-22 10:00)
DX: D50.9 Iron deficiency anemia, unspecified (principal); K29.60 Other gastritis without bleeding; K25.9 Gastric ulcer, unspecified as acute or chronic, without hemorrhage or perforation; K29.50 Unspecified chronic gastritis without bleeding
CPT/HCPCS: 88312; 82947; 88305; 43239; J2704 ×2; J2001 ×2; J7030

== ENCOUNTER 2023-10-30 20:44 | Inpatient (IN) | payer OTHER ==
[2023-10-30] MEDS ORDERED: METHYLPREDNISOLONE 125 MG INJ ONE (20:57)
[2023-10-30] MEDS ORDERED: DIPHENHYDRAMINE 50 MG/ML VIAL ONE (20:57)
[2023-10-30] MEDS ORDERED: predniSONE 20 MG TAB ONE (20:57)
[2023-10-30] MEDS ORDERED: NA CHLORIDE 0.9% 1,000 ML ONE (20:57)
[2023-10-30] MEDS ORDERED: IPRATROPIUM BROM 0.5MG/2.5ML ONE (20:57)
[2023-10-30] MEDS ORDERED: FAMOTIDINE 20 MG/2 ML VIAL IV ONE (20:57)
[2023-10-30] MEDS ORDERED: dexAMETHasone 10 MG/ML VIAL ONE (20:57)
[2023-10-30] MEDS ORDERED: ALBUTEROL 2.5 MG/3 ML NEB SOL ONE (20:57)
[2023-10-30 21:13] LABS: Absolute Eosinophils 0.7 K/uL (0-0.5); Absolute Lymphocytes (CBC) 0.6 K/uL (0.7-4.9); Absolute Monocytes 0.2 K/uL (0.1-1.3); Absolute Neutrophil 1.8 K/uL (1.8-8.0); Basophils % 0.7 % (0-1.3); Eosinophils % 21.1 % (0-4.4); Hematocrit 20.8 % (39.6-49.0); Hemoglobin 6.6 g/dL (13.6-17.9); Lymphocytes % 17.3 % (15.3-44.8); MCH 20.9 pg (27.0-35.0); MCHC 31.7 g/dL (32.0-36.0); MCV 65.9 fL (80-100); MPV 6.7 fL (7.6-11.3); Neutrophils % 53.9 % (41.7-73.7); Nucleated Red Blood Cells % 0.1 % (0-0); Platelets 193 thou/uL (152-406); RBC Red Blood Cell Count 3.16 M/uL (4.33-5.43); Red Cell Distribution Width 17.3 % (12.1-15.2)
[2023-10-30 21:31] LABS: Albumin/Globulin Ratio 0.7 (1.1-1.8); Anion Gap 8.8 mEq/L (5.0-15.0); Bilirubin Total 0.6 mg/dL (0.2-1.0); Globulin 4.2 g/dL (2.3-3.5); Potassium 3.8 mEq/L (3.5-5.1); Protein, Total 7.2 g/dL (6.4-8.2)
[2023-10-30 21:56] LABS: Blood Morphology Comment NOTED (NOT SEEN); Hypochromasia 1+; Microcytosis 1+; Platelet Estimate ADEQ; White Blood Cell Scan OK (OK)
[2023-10-30 21:57] LABS: Percent Reticulocyte Count 2.2 % (0.4-2.05); RBC Red Blood Cell Count 3.27 M/uL (4.33-5.43)
[2023-10-30] MEDS ORDERED: PANTOPRAZOLE 40 MG INJ ONE (22:03)
--- NOTE | 2023-10-30 22:13 | ER ---
Nurse's Notes [facility] Name: Carlos Lira Age: 53 yrs Sex: Male : 1970 Arrival Date: 10/30/2023 Time: 20:44 Bed 4 Private MD: Diagnosis: Angioneurotic edema;Adverse effect of patlajhovdp-rwlivukowv-pofeov inhibitors;Anemia in chronic kidney disease;Anemia, unspecified;Weakness Presentation: 10/29 20:48 Chief complaint: Patient states: Left upper lip swelling along with tongue swelling, nj1 onset around noon. Denies difficulty breathing. Does take lisinopril on a daily basis. 20:48 Coronavirus screen: Vaccine status: Patient reports receiving the 2nd dose of the covid nj1 vaccine. Ebola Screen: Patient denies travel to an Ebola-affected area in the 21 days before illness onset. Onset: The symptoms/episode began/occurred acutely, today, and became worse. Anaphylaxis evaluation, angioedema. Risk Assessment: Do you want to hurt yourself or someone else? Patient reports no desire to harm self or others. Onset of symptoms was October 30, 2023 at 12:00. 20:48 Method Of Arrival: Ambulatory [facility] 20:48 Acuity: YESSENIA 2 nj1 21:10 Initial Sepsis Screen: Does the patient meet any 2 criteria? No. Patient's initial rv sepsis screen is negative. Does the patient have a suspected source of infection? No. Patient's initial sepsis screen is negative. Triage Assessment: 21:10 General: Appears comfortable. rv 21:10 General: Behavior is calm, cooperative. rv Historical: - Allergies: 20:55 No Known Allergies; nj1 - PMHx: 20:55 Hypertensive disorder; nj1 - Immunization history:: Client reports receiving the 2nd dose of the Covid vaccine. - Infectious Disease History:: Denies. - Social history:: Smoking status: Patient denies any tobacco usage or history of. Screenin:10 [facility] ED Fall Risk Assessment (Adult) History of falling in the last 3 months, rv including since admission No falls in past 3 months (0 pts) Score/Fall Risk Level 0 - 2 = Low Risk Oriented to surroundings, Maintained a safe environment, Educated pt \T\ family on fall prevention, incl call for assistance when getting out of bed, Assessed \T\ reinforced patient's understanding of fall precautions. Abuse screen: Denies threats or abuse. Denies injuries from another. Nutritional screening: No deficits noted. Tuberculosis screening: No symptoms or risk factors identified. Assessment: 21:07 Reassessment:. General: Appears comfortable, Behavior is calm, cooperative. Pain: rv Denies pain. Neuro: Level of Consciousness is awake, alert, obeys commands, Oriented to person, place, time, situation. Cardiovascular: Capillary refill < 3 seconds Patient's skin is warm and dry. Rhythm is regular. Respiratory: Airway is patent Respiratory effort is even, unlabored, Breath sounds are clear bilaterally. EENT: swelling of the upper and lower lips, left side; tongue swelling, left side. EENT: Eyes swelling bilateral periorbital. 22:01 Reassessment: Patient and/or family updated on plan of care and expected duration. Pain tm6 level reassessed. Patient is alert, oriented x 3, equal unlabored respirations, skin warm/dry/pink. Vital Signs: 20:48 Weight 114.76 kg; Height 5 ft. 8 in. ; nj1 21:07 BP 154 / 86; Pulse 75; Resp 16; Temp 98; Pulse Ox 100% on R/A; rv 22:01 BP 142 / 83; Pulse 89; Pulse Ox 96% on R/A; Pain 0/10; tm6 20:48 Body Mass Index 38.47 (114.76 kg, 172.72 cm) nj1 22:01 Pain Scale: Adult tm6 ED Course: 20:47 Patient arrived in ED. ra3 20:52 gAapito Quintero MD is Attending Physician. brad 20:55 Triage completed. nj1 20:55 Arm band placed on. nj1 21:02 Bell Scott, MARIANA is Primary Nurse. tm6 21:07 Comprehensive Metabolic Panel Sent. rv 21:07 CBC with Diff Sent. rv 21:07 Initial lab(s) drawn, by mo, sent to lab. Inserted saline lock: 20 gauge in right rv forearm, using aseptic technique. Blood collected. 21:10 Patient has correct armband on for positive identification. Client placed on continuous rv cardiac and pulse oximetry monitoring. NIBP monitoring applied. surveillance system monitor on. 21:10 No provider procedures requiring assistance completed. rv 22:01 Type And Screen Sent. tm6 22:06 Chest Single View XRAY In Process Unspecified. EDMS 22:11 Baidoo, Hardeep is Hospitalizing Provider. brad 22:48 Assisted to bathroom. vk 22:59 CT Stone Protocol In Process Unspecified. EDMS 10/30 00:13 Provided Education on: Blood Transfusion. Door closed. Noise minimized. Warm blanket tm6 given. 00:13 Consent for blood and/or blood product transfusion explained by staff, explained by tm6 physician, signed by patient. 00:32 Patient admitted, IV remains in place. tm6 Administered Medications: 10/29 21:06 Drug: MethylPrednisoLONE IVP 125 mg IVP once Route: IVP; Site: right forearm; rv 10/30 00:57 Follow up: Response: No adverse reaction rv 10/29 21:06 Drug: Famotidine IVP 40 mg IVP once; dilute with 10 mL 0.9% NaCl; give over 2 minutes rv Route: IVP; Site: right forearm; 10/30 00:57 Follow up: Response: No adverse reaction rv 10/29 21:06 Drug: predniSONE PO 60 mg PO once Route: PO; rv 10/30 00:56 Follow up: Response: No adverse reaction rv 10/29 21:06 Drug: Decadron - Dexamethasone IVP 10 mg IVP once Route: IVP; Site: right forearm; rv 10/30 00:56 Follow up: Response: No adverse reaction rv 10/29 21:06 Drug: Albuterol Inhalation 5 mg Inhalation once Route: Inhalation; rv 21:06 Drug: Ipratropium Inhalation Aerosol 0.5 mg Inhalation once Route: Inhalation; rv 21:07 Drug: NS 0.9% IV 1000 ml IV at 1 bolus Per protocol; 1000 mL bolus Route: IV; Rate: 1 rv bolus; Site: right forearm; 10/30 00:57 Follow up: IV Status: Completed infusion; IV Intake: 1000ml rv 10/29 21:07 Drug: diphenhydrAMINE IVP 50 mg IVP once Route: IVP; Site: right forearm; rv 10/30 00:57 Follow up: Response: No adverse reaction rv 10/29 22:06 Drug: Pantoprazole IVP 40 mg IVP once Route: IVP; Site: right antecubital; tm6 10/30 00:56 Follow up: Response: No adverse reaction rv Medication: 10/29 21:11 VIS not applicable for this client. rv 23:50 Blood products: PRBCs X 1 unit given. tm6 Intake: 10/30 00:57 IV: 1000ml; Total: 1000ml. rv Outcome: 10/29 22:12 Decision to Hospitalize by Provider. brad 10/30 00:32 Admitted to Med/surg accompanied by nurse, via wheelchair, room 208, with chart, Report tm6 called to report faxed Condition: stable Instructed on the need for admit, 00:56 Patient left the ED. rv Signatures: Dispatcher [employer] EDMO Agapito Quintero MD MD cha Vicente, Ronaldo RN RN rv Fawn Murphy RN RN nj1 Bell Scott RN RN tm6 Marylou Strickland ra3 Rosa Isela Wilkins
--- NOTE | 2023-10-30 22:13 | EDPHYS ---
Physician Documentation [facility] Name: Carlos Lira Age: 53 yrs Sex: Male : 1970 Arrival Date: 10/30/2023 Time: 20:44 Bed 4 Private MD: ED Physician Agapito Quintero HPI: 10/29 21:54 This 53 yrs old Male presents to ER via Ambulatory with complaints of Allergic brad Reaction - angioedema. 21:54 The patient presents with difficulty swallowing, runny nose, swelling of the lips, brad swelling of the tongue. Onset: The symptoms/episode began/occurred just prior to arrival, today. Associated signs and symptoms: The patient has no apparent associated signs or symptoms. Possible causes: ZOYA inhibitor, Zestril. At home the patient or guardian has treated the symptoms with nothing. Severity of symptoms: At their worst the symptoms were mild moderate in the emergency department the symptoms are unchanged. The patient has not experienced similar symptoms in the past. Historical: - Allergies: 20:55 No Known Allergies; nj1 - PMHx: 20:55 Hypertensive disorder; nj1 - Immunization history:: Client reports receiving the 2nd dose of the Covid vaccine. - Infectious Disease History:: Denies. - Social history:: Smoking status: Patient denies any tobacco usage or history of. ROS: 21:55 Constitutional: Negative for fever, chills, and weight loss, Eyes: Negative for injury, brad pain, redness, and discharge, Neck: Negative for injury, pain, and swelling, Cardiovascular: Negative for chest pain, palpitations, and edema, Respiratory: Negative for shortness of breath, cough, wheezing, and pleuritic chest pain, Abdomen/GI: Negative for abdominal pain, nausea, vomiting, diarrhea, and constipation, Back: Negative for injury and pain, : Negative for injury, bleeding, discharge, and swelling, MS/Extremity: Negative for injury and deformity, Skin: Negative for injury, rash, and discoloration, Neuro: Negative for headache, weakness, numbness, tingling, and seizure, Psych: Negative for depression, anxiety, suicide ideation, homicidal ideation, and hallucinations, Allergy/Immunology: Negative for hives, rash, and allergies, Endocrine: Negative for neck swelling, polydipsia, polyuria, polyphagia, and marked weight changes, Hematologic/Lymphatic: Negative for swollen nodes, abnormal bleeding, and unusual bruising, 21:55 ENT: Positive for difficulty swallowing, 21:55 Allergy/Immunology: Positive for LIPS, TONGUE, Exam: 21:55 Constitutional: This is a well developed, well nourished patient who is awake, alert, brad and in no acute distress. Head/Face: Normocephalic, atraumatic. Eyes: Pupils equal round and reactive to light, extra-ocular motions intact. Lids and lashes normal. Conjunctiva and sclera are non-icteric and not injected. Cornea within normal limits. Periorbital areas with no swelling, redness, or edema. Neck: Trachea midline, no thyromegaly or masses palpated, and no cervical lymphadenopathy. Supple, full range of motion without nuchal rigidity, or vertebral point tenderness. No Meningismus. Chest/axilla: Normal chest wall appearance and motion. Nontender with no deformity. No lesions are appreciated. Cardiovascular: Regular rate and rhythm with a normal S1 and S2. No gallops, murmurs, or rubs. Normal PMI, no JVD. No pulse deficits. Respiratory: Lungs have equal breath sounds bilaterally, clear to auscultation and percussion. No rales, rhonchi or wheezes noted. No increased work of breathing, no retractions or nasal flaring. Abdomen/GI: Soft, non-tender, with normal bowel sounds. No distension or tympany. No guarding or rebound. No evidence of tenderness throughout. Back: No spinal tenderness. No costovertebral tenderness. Full range of motion. Male : Normal genitalia with no discharge or lesions. Skin: Warm, dry with normal turgor. Normal color with no rashes, no lesions, and no evidence of cellulitis. MS/ Extremity: Pulses equal, no cyanosis. Neurovascular intact. Full, normal range of motion. Neuro: Awake and alert, GCS 15, oriented to person, place, time, and situation. Cranial nerves II-XII grossly intact. Motor strength 5/5 in all extremities. Sensory grossly intact. Cerebellar exam normal. Normal gait. Psych: Awake, alert, with orientation to person, place and time. Behavior, mood, and affect are within normal limits. 21:55 ENT: Mouth: Lips: SWOLLEN LEFT SIDE, Oral mucosa: moist, Gums: normal with healthy appearance, Tongue: is swollen, 21:55 Skin: Appearance: Color: pale, Temperature: normal temperature, Moisture: normal moisture, petechiae, not noted, 22:25 Abdomen/GI: Inspection: abdomen appears normal, Bowel sounds: normal, Palpation: [facility] abdomen is soft and non-tender, Rectal exam: rectal tone normal, Stool: guaiac negative, hemorrhoid(s), are not appreciated, mass, is not appreciated, swelling, is not appreciated, tenderness, is not appreciated, Liver: no appreciated palpable abnormalities, Hernia: not appreciated, Vital Signs: 20:48 Weight 114.76 kg; Height 5 ft. 8 in. ; nj1 21:07 BP 154 / 86; Pulse 75; Resp 16; Temp 98; Pulse Ox 100% on R/A; rv 22:01 BP 142 / 83; Pulse 89; Pulse Ox 96% on R/A; Pain 0/10; tm6 20:48 Body Mass Index 38.47 (114.76 kg, 172.72 cm) nj1 22:01 Pain Scale: Adult tm6 MDM: 20:52 Patient medically screened. [facility] 21:59 Differential diagnosis: anaphylaxis, angioedema, Arrhythmias bronchospasm, Status brad Asthmaticus urticaria. Differential Diagnosis altered mental status, sepsis. Data reviewed: vital signs, nurses notes, lab test result(s), radiologic studies, CT scan. Consideration of Admission/Observation Patient was admitted/placed on observation. Escalation of care including admission/observation considered. I considered the following discharge prescriptions or medication management in the emergency department Medications were administered in the Emergency Department. See MAR. Test considered but Not performed: Ultrasound NO ABD USG. Care significantly affected by the following chronic conditions: Hypertension, Chronic Kidney Disease, ANEMIA. 10/29 20:53 Order name: CBC with Diff [facility] 10/29 20:53 Order name: Comprehensive Metabolic Panel; Complete Time: 21:42 [facility] 10/29 21:46 Order name: Type And Screen [facility] 10/29 21:47 Order name: Iron Level [facility] 10/29 21:47 Order name: TIBC [facility] 10/29 21:47 Order name: B12 [facility] 10/29 21:47 Order name: Ferritin [facility] 10/29 21:47 Order name: Retic Count [facility] 10/29 21:56 Order name: CBC Smear Scan [facility] 10/29 21:59 Order name: Packed RBC Leukored [facility] 10/29 23:40 Order name: Urinalysis w/ reflexes EDMS 10/29 23:40 Order name: Basic Metabolic Panel EDMS 10/29 23:40 Order name: Basic Metabolic Panel EDMS 10/29 23:40 Order name: CBC with Automated Diff EDMS 10/29 23:40 Order name: CBC with Automated Diff EDMS 10/29 23:40 Order name: Magnesium EDMS 10/29 23:40 Order name: Magnesium EDMS 10/29 23:40 Order name: Phosphorus EDMS 10/29 23:40 Order name: Phosphorus EDMS 10/29 21:46 Order name: CT Stone Protocol [facility] 10/29 21:48 Order name: Chest Single View XRAY brad Administered Medications: 21:06 Drug: MethylPrednisoLONE IVP 125 mg IVP once Route: IVP; Site: right forearm; rv 10/30 00:57 Follow up: Response: No adverse reaction rv 10/29 21:06 Drug: Famotidine IVP 40 mg IVP once; dilute with 10 mL 0.9% NaCl; give over 2 minutes rv Route: IVP; Site: right forearm; 10/30 00:57 Follow up: Response: No adverse reaction rv 10/29 21:06 Drug: predniSONE PO 60 mg PO once Route: PO; rv 10/30 00:56 Follow up: Response: No adverse reaction rv 10/29 21:06 Drug: Decadron - Dexamethasone IVP 10 mg IVP once Route: IVP; Site: right forearm; rv 10/30 00:56 Follow up: Response: No adverse reaction rv 10/29 21:06 Drug: Albuterol Inhalation 5 mg Inhalation once Route: Inhalation; rv 21:06 Drug: Ipratropium Inhalation Aerosol 0.5 mg Inhalation once Route: Inhalation; rv 21:07 Drug: NS 0.9% IV 1000 ml IV at 1 bolus Per protocol; 1000 mL bolus Route: IV; Rate: 1 rv bolus; Site: right forearm; 10/30 00:57 Follow up: IV Status: Completed infusion; IV Intake: 1000ml rv 10/29 21:07 Drug: diphenhydrAMINE IVP 50 mg IVP once Route: IVP; Site: right forearm; rv 10/30 00:57 Follow up: Response: No adverse reaction rv 10/29 22:06 Drug: Pantoprazole IVP 40 mg IVP once Route: IVP; Site: right antecubital; tm6 10/30 00:56 Follow up: Response: No adverse reaction rv Disposition Summary: 10/30/23 22:12 Hospitalization Ordered Notes: Hospitalization Status: Observation brad Provider: Hardeep Weldon cha Location: Telemetry/MedSurg (observation) brad Condition: Fair brad Problem: new brad Symptoms: have improved brad Bed/Room Type: Standard brad Room Assignment: 208(10/31/23 00:15) cg Diagnosis - Angioneurotic edema brad - Adverse effect of hhkgcirirtv-ufuntfvwjg-tmmgbl inhibitors brad - Anemia in chronic kidney disease brad - Anemia, unspecified brad - Weakness brad Forms: - Medication Reconciliation Form brad - SBAR form brad - Leadership Thank You Letter brad Signatures: Dispatcher [employer] EDAgapito Oliver MD MD cha Garcia, Cindy, RN RN Jcarlos Lou RN RN Kelsey Stephenson Fawn Murphy RN RN nj1 Bell Scott RN RN tm6 Corrections: (The following items were deleted from the chart) 10/29 23:37 22:12 brad 10/30 00:15 10/29 23:37 [facility] [place] [place]
--- NOTE | 2023-10-30 22:21 | RAD REPORT ---
EXAM DESCRIPTION: [place] Single View10/30/2023 10:04 pm CLINICAL HISTORY: COUGH COMPARISON: CHEST SINGLE VIEW dated 02/12/2012; CHEST SINGLE VIEW dated 02/12/2012; CHEST SINGLE VIEW da dariana 02/11/2012 TECHNIQUE: Portable AP view of the chest. FINDINGS: Progressive central interstitial prominence. Marked cardiomegaly. No pneumothorax. Trace right pleural effusion. The mediastinal contours are otherwise unchanged. IMPRESSION: Findings suggestive of CHF.
[2023-10-30 22:31] LABS: Ferritin 32.9 ng/mL (26-388)
[2023-10-30] MEDS ORDERED: NA CHLORIDE 0.9% 250 ML ONE (23:20)
[2023-10-30] MEDS ORDERED: ACETAMINOPHEN 325 MG TABLET ONE (23:22)
[2023-10-30] MEDS ORDERED: ONDANSETRON 4 MG/2 ML VIAL IV PRN (23:32)
--- NOTE | 2023-10-30 23:45 | P.HP ---
Certification for Inpatient Patient admitted to: Observation With expected LOS: <2 Midnights Practitioner: I am a practitioner with admitting privileges, knowledge of patient current condition, hospital course, and medical plan of care. Services: Services provided to patient in accordance with Admission requirements found in Title 42 Section 412.3 of the Code of Federal Regulations Patient History Date of Service: 10/30/23 Reason for admission: Swollen lip and tongue History of Present Illness: 53-year-old gentleman with a history of hypertension, chronic kidney disease, chronic anemia presented to the emergency department with a complaint of sudden swelling of the lip and tongue. No known precipitating cause. Patient stated he ate some salad with ranch dressing at lunch and barbecue pork at dinner. Patient's symptoms occurred after dinner today. Patient evaluated in the ED and noted to have swollen left and left half of tongue swollen. Noted he takes ZOYA inhibitor for hypertension. Patient symptoms suspected to be related to ZOYA inhibitor related angioedema. Patient given IV steroid, Pepcid, Benadryl in the ED. Symptoms partially improved. He is hospitalized for further management. Allergies No Known Allergies Allergy (Verified 08/19/22 10:27) Home Medications: Carvedilol [Coreg] 12.5 mg PO BID #0 tablet 02/18/12 Aspirin [Low Dose Aspirin EC] 81 mg PO DAILY 06/07/22 Furosemide [Lasix*] 20 mg PO BIDL 06/07/22 Glipizide [Glipizide ER] 5 mg PO DAILY 06/07/22 Hydralazine HCl 100 mg PO BID 06/07/22 Lisinopril [Zestril] 40 mg PO DAILY 06/07/22 Amlodipine [Norvasc*] 5 mg PO DAILY 06/13/22 - Past Medical/Surgical History Diabetic: No -: DM2 -: Hypertension -: Obesity -: CKD III (Dr. Mathias) -: Iron Deficiency Anemia -: Diastolic CHF -: LYNDSAY - Family History Mother -: Diabetes Father -: Other (see notes) ([place] and CHF) - Social History Alcohol use: Yes CD- Drugs: No Caffeine use: Yes Review of Systems Other: Except as documented, all other systems reviewed and negative. Physical Examination - Physical Exam General: Alert, In no apparent distress, Oriented x3 HEENT: Mucous membr. moist/pink, Other (Left upper lip is swollen, left half of tongue swollen, no throat erythema.), Sclerae nonicteric Neck: Supple, JVD not distended, Other (No stridor) Respiratory: Clear to auscultation bilaterally, Normal air movement, Other (No stridor) Cardiovascular: No edema, Regular rate/rhythm, Normal S1 S2 Capillary refill: <2 Seconds Gastrointestinal: Normal bowel sounds, Soft and benign, Non-distended, No tenderness Musculoskeletal: No swelling, No tenderness Integumentary: No rashes, No cyanosis Neurological: Normal speech, Normal strength at 5/5 x4 extr Lymphatics: No axilla or inguinal lymphadenopathy - Studies Laboratory Data (last 24 hrs) 10/30/23 10/30/23 21:04 21:04 WBC 3.30 L Hgb 6.6 L Hct 20.8 L Plt Count 193 Sodium 135 L Potassium 3.8 BUN 32 H Creatinine 2.27 H Glucose 88 Total Bilirubin 0.6 AST 17 ALT 21 Alkaline Phosphatase 102 Assessment and Plan - Problems (Diagnosis) (1) Angioedema Current Visit: Yes Status: Acute (2) Chronic anemia Current Visit: Yes Status: Acute (3) Chronic kidney disease, stage 3 unspecified Current Visit: Yes Status: Acute (4) Essential hypertension Current Visit: Yes Status: Acute - Plan Angioedema Suspected to be related to ZOYA inhibitor. Place patient under observation Discontinue ZOYA inhibitor IV steroid, IV Pepcid, Benadryl. Monitor vitals. Essential hypertension Discontinue lisinopril Blood pressure continue with amlodipine. Chronic anemia History of GI bleed Transfuse 1 unit PRBC Check iron profile Chronic kidney disease stage III Stable Outpatient follow-up. DM type II Insulin sliding scale for glucose management. DVT prophylaxis; SCD - Advance Directives Does patient have a Living Will: No Does patient have a Durable POA for Healthcare: No
[2023-10-31 01:45] LABS: Specific Gravity 1.009 (1.005-1.030); Sqamous Epithelial <5 /HPF (None Seen); Urine Bacteria <20 /HPF (<20); Urine Bilirubin NEGATIVE (Negative); Urine Blood Trace (Negative); Urine Clarity Clear (Clear); Urine Color Colorless (Yellow); Urine Culture Reflex Order NOT NEEDED; Urine Glucose NEGATIVE (Negative); Urine Ketones NEGATIVE (Negative); Urine Microscopic Reflex YN ORDER UMIC; Urine Nitrite NEGATIVE (Negative); Urine Protein TRACE (Negative); Urine Urobilinogen Normal (Normal); Urine WBC <5 /HPF (<5)
[2023-10-31 08:04] LABS: Absolute Lymphocytes (CBC) 0.3 K/uL (0.7-4.9); Absolute Neutrophil 1.4 K/uL (1.8-8.0); Basophils % 0.2 % (0-1.3); Eosinophils % 0.6 % (0-4.4); Hematocrit 23.6 % (39.6-49.0); Hemoglobin 7.6 g/dL (13.6-17.9); Lymphocytes % 15.9 % (15.3-44.8); MCH 22.1 pg (27.0-35.0); MPV 6.9 fL (7.6-11.3); Monocytes % 2.4 % (3.3-12.3); Neutrophils % 80.9 % (41.7-73.7); Nucleated Red Blood Cells % 0.2 % (0-0); Platelets 176 thou/uL (152-406); RBC Red Blood Cell Count 3.42 M/uL (4.33-5.43)
[2023-10-31 08:11] LABS: Anion Gap 8.3 mEq/L (5.0-15.0); Magnesium 2.6 mg/dL (1.6-2.4); Phosphorus 4.1 mg/dL (2.5-4.9); Potassium 4.3 mEq/L (3.5-5.1)
[2023-10-31] MEDS: AMLODIPINE 5 MG TAB PO SCH (08:29)
[2023-10-31] MEDS ORDERED: ENOXAPARIN 40 MG/0.4 ML SQ SCH (09:00)
[2023-10-31] MEDS: carvediloL 12.5 MG TAB PO SCH (11:01)
[2023-10-31] MEDS: HYDRALAZINE HCL 25 MG TABLET PO SCH (11:01)
--- NOTE | 2023-10-31 12:06 | P.CNS ---
Date of Consult: 10/31/23 Reason for Consult: CKD, ACEi induced angioedema episode Chief Complaint: Swollen lip and tongue History of Present Illness: Pt is a 53-year-old male with a history of hypertension, obesity, LYNDSAY, chronic peripheral edema, chronic kidney disease Stage IIIb under the care of Dr. Mathias and chronic anemia presented to the emergency department yesterday with a complaint of sudden swelling of the lip and tongue that started around noon yesterday. No known precipitating cause. Denies new meds, no recent Abx, no food allergies. No rashes or hives. Denies dysphagia, difficulty breathing or hives, symptoms improving. Allergies No Known Allergies Allergy (Verified 08/19/22 10:27) Home Medications: Carvedilol [Coreg] 12.5 mg PO BID #0 tablet 02/18/12 Aspirin [Low Dose Aspirin EC] 81 mg PO DAILY 06/07/22 Furosemide [Lasix*] 20 mg PO BIDL 06/07/22 Glipizide [Glipizide ER] 5 mg PO DAILY 06/07/22 Hydralazine HCl 100 mg PO BID 06/07/22 Lisinopril [Zestril] 40 mg PO DAILY 06/07/22 Amlodipine [Norvasc*] 5 mg PO DAILY 06/13/22 - Past Medical/Surgical History Diabetic: No -: DM2 -: Hypertension -: Obesity -: CKD III (Dr. Mathias) -: Iron Deficiency Anemia -: Diastolic CHF -: LYNDSAY - Family History Mother Medical History: Diabetes Father Medical History: Other (see notes) - Social History Smoking Status: Never smoker Alcohol use: No CD- Drugs: No Caffeine use: Yes Place of Residence: Home Review of Systems General: Unremarkable Eyes: Other (Puff eyelids) ENT: As per HPI Respiratory: Unremarkable Cardiovascular: As per HPI Gastrointestinal: Other (Hx of scopes by GI) Genitourinary: Unremarkable Musculoskeletal: Unremarkable Integumentary: Unremarkable Neurological: Unremarkable Lymphatics: Unremarkable Physical Examination Temp Pulse Resp BP Pulse Ox 98.2 F 64 18 167/93 H 98 10/31/23 07:55 10/31/23 07:55 10/31/23 07:55 10/31/23 07:55 10/31/23 07:55 General: Alert, In no apparent distress, Cooperative HEENT: Atraumatic, Normocephalic, Other (swelling around eyelids, no lip or tongue swelling, no stridor or voice hoarseness ) Neck: Supple Respiratory: Clear to auscultation bilaterally, Normal air movement Cardiovascular: Regular rate/rhythm, Normal S1 S2, Edema Gastrointestinal: Soft and benign, Non-distended, No tenderness Musculoskeletal: No contractures, No tenderness Integumentary: No rashes Neurological: Normal speech, Normal tone, Normal affect Laboratory Data (last 24 hrs) 10/30/23 10/30/23 21:04 21:04 WBC 3.30 L Hgb 6.6 L Hct 20.8 L Plt Count 193 Sodium 135 L Potassium 3.8 BUN 32 H Creatinine 2.27 H Glucose 88 Total Bilirubin 0.6 AST 17 ALT 21 Alkaline Phosphatase 102 Conclusions/Impression: A/P) 1. 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 2. Suspected ACEi induced angioedema, no prior episodes. Improving, cont steroids, anti histamines. No further use of ACEi or ARB agents 3. Chronic HTN -BP mod elevated, resume home meds 4. Chronic peripheral edema, multifactorial -resume scheduled lasix, off ACEi and on dihydropyridine CCB for HTN, edema could worsen
[2023-10-31] MEDS: FUROSEMIDE 20 MG TABLET PO SCH (12:10)
[2023-10-31] MEDS: DIPHENHYDRAMINE 50 MG/ML VIAL IV SCH (12:30)
--- NOTE | 2023-10-31 14:11 | P.DS ---
Admission Date: 10/30/23 Discharge Date: 10/31/23 Disposition: ROUTINE DISCHARGE Discharge Condition: GOOD Reason for Admission: Swollen lip and tongue Brief History of Present Illness: 53-year-old gentleman with a history of hypertension, chronic kidney disease, chronic anemia presented to the emergency department with a complaint of sudden swelling of the lip and tongue. No known precipitating cause. Patient stated he ate some salad with ranch dressing at lunch and barbecue pork at dinner. Patient's symptoms occurred after dinner today. Patient evaluated in the ED and noted to have swollen left and left half of tongue swollen. Noted he takes ZOYA inhibitor for hypertension. Patient symptoms suspected to be related to ZOYA inhibitor related angioedema. Patient given IV steroid, Pepcid, Benadryl in the ED. Symptoms partially improved. He is hospitalized for further management. Hospital Course: Pt is a 53 yo male with past medical history of hypertension, chronic kidney disease, and chronic anemia who presented to the ER with sudden swelling of the lip and tongue. Pt was taking lisinopril at home. He reported eating salad with ranch dressing at lunch and barbecue pork at dinner. Patient's symptoms occurred after the dinner. On admission, we stopped the lisinopril. Pt was advised to stop taking lisinopril at home. ER physician gave IV steroid, Pepcid, Benadryl in the ED. The symptoms improved. We gave 1 unit of blood and iron infusion due to iron def anemia. We continued home med for other chronic medical problems. Vital Signs/Physical Exam: Temp Pulse Resp BP Pulse Ox 97.7 F 63 18 158/86 H 97 10/31/23 12:00 10/31/23 12:00 10/31/23 12:00 10/31/23 12:00 10/31/23 12:00 Laboratory Data at Discharge: WBC 1.70 thou/uL (4.3-10.9) L 10/31/23 07:35 Hgb 7.6 g/dL (13.6-17.9) L D 10/31/23 07:35 Hct 23.6 % (39.6-49.0) L 10/31/23 07:35 Plt Count 176 thou/uL (152-406) 10/31/23 07:35 Sodium 135 mEq/L (136-145) L 10/31/23 07:35 Potassium 4.3 mEq/L (3.5-5.1) D 10/31/23 07:35 BUN 35 mg/dL (7-18) H 10/31/23 07:35 Creatinine 2.13 mg/dL (0.70-1.30) H 10/31/23 07:35 Glucose 212 mg/dL (74-106) H 10/31/23 07:35 Phosphorus 4.1 mg/dL (2.5-4.9) 10/31/23 07:35 Magnesium 2.6 mg/dL (1.6-2.4) H 10/31/23 07:35 Total Bilirubin 0.6 mg/dL (0.2-1.0) 10/30/23 21:04 AST 17 U/L (15-37) 10/30/23 21:04 ALT 21 U/L (16-61) 10/30/23 21:04 Alkaline Phosphatase 102 U/L (45-117) 10/30/23 21:04 Home Medications: Carvedilol [Coreg] 12.5 mg PO BID #0 tablet 02/18/12 Aspirin [Low Dose Aspirin EC] 81 mg PO DAILY 06/07/22 Furosemide [Lasix*] 20 mg PO BIDL 06/07/22 Glipizide [Glipizide ER] 5 mg PO DAILY 06/07/22 Hydralazine HCl 100 mg PO BID 06/07/22 Amlodipine [Norvasc*] 5 mg PO DAILY 06/13/22 Famotidine [Pepcid] 20 mg PO BID 3 Days #6 tab 10/31/23 predniSONE [Prednisone*] 40 mg PO DAILY 3 Days #3 tab 10/31/23 New Medications: Famotidine [Pepcid] 20 mg PO BID 3 Days #6 tab predniSONE [Prednisone*] 40 mg PO DAILY 3 Days #3 tab Physician Discharge Instructions: Continue ad eric activity. Take prednisone and pepcid for 3 days. Stop taking lisinopril. Continue other home meds. Follow up with PCP within 2 weeks. Diet: AHA Activity: Ad eric Followup: Rosalia Mathias MD [Primary Care Provider] -
--- NOTE | 2023-10-31 14:12 | RAD REPORT ---
EXAM DESCRIPTION: Stone Protocol 10/30/2023 11:14 PM CDT CLINICAL HISTORY: 53 years, Male, FLANK PAIN COMPARISON: None TECHNIQUE: Noncontrast images of the abdomen and pelvis were performed utilizing 3 mm slight thickne ss at 3 mm interval reconstruction from the lung bases to the ischial tuberosities. In addition multiplanar reformats in the coronal and sagittal plane were obtained and reviewed. An individualized dose optimization technique, Automated Exposure Control, was utilized for the perfo rmed procedure. FINDINGS: The lack of IV contrast limits evaluation of solid organs, subtle lesions cannot be exclud ed. Lung bases: The lung bases demonstrated presence of minimal haziness within the posterior CP angles s uggesting minimal atelectasis. Possible scarring and/or minimal round atelectasis lateral aspect infe rior right middle lobe on axial image 10. Cardiomegaly. Minimal coronary artery calcifications Small pericardial effusion measuring 22 mm right lateral aspect/right carotid phrenic angle on axial image 8. Liver: Grossly the unopacified liver demonstrates to be normal, no focal lesions are identified. Gallbladder: The gallbladder is partially contracted most likely related to lack of fasting. No signi ficant filling defects in/or abnormality is identified. Adrenal glands: Grossly the unopacified adrenal glands demonstrate to be normal. Pancreas: Grossly the unopacified pancreas demonstrate to be normal Spleen: The spleen demonstrate to be normal. Kidneys: Grossly the unopacified kidneys demonstrate to be within normal limits. There is no eviden ce for significant nephrolithiasis and/or hydronephrosis. There is a right renal cyst measuring 3.1 c m on image 63 and medial lower pole left renal cyst measuring 4.1 cm on image 75. GI: Grossly the unopacified stomach, small bowel and large bowel demonstrate to be within normal limi ts. No evidence for bowel dilatation and/or free air. The appendix is normal. The left-sided colon de monstrate to be decompressed with no gross abnormalities. : The urinary bladder demonstrate to be unremarkable. Genitalia: The prostate gland is normal. Abdominal aorta: The aorta demonstrate demonstrate to be within normal limits. Retroperitoneum: There are subclinical retroperitoneal lymph nodes left periaortic area with the larg est lymph node inferior left external iliac chain with central fatty hilum measuring 18 mm on image 1 17 findings could correspond to reactive in nature. There is no evidence for ascites and/or abnormal fluid collections. Bones: The bony structures demonstrate to be within normal limits. Soft tissues: Small umbilical hernia containing omentum on sagittal image 69. IMPRESSION: No evidence for significant nephrolithiasis and/or hydronephrosis. Multiple lesions, including left Bosniak I/Bosniak II benign renal cyst measuring 4.1 cm. No follow-u p imaging is recommended. JACR 2018 Aug; 264-273, Management of the Incidental Renal Mass on CT, [employer] 2020; 814-848, B osniak Classification of Cystic Renal Masses, Version 2019. Cardiomegaly with a small pericardial effusion measuring 22 mm right lateral aspect/right carotid phr enic angle. Small umbilical hernia containing omentum. Electronically signed by: Bola Pacheco MD 10/30/2023 11:20 PM CDT Due to temporary technical issues with the PACS/Fluency reporting system, reports are being signed by the in house radiologists without review as a courtesy to insure prompt reporting. The interpreting radiologist is fully responsible for the content of the report
--- NOTE | 2023-10-31 14:26 | P.PN ---
Subjective Date of Service: 10/31/23 Chief Complaint: Swollen lip and tongue Pt is resting comfortably in bed. ThE tongue swelling has improved. Pt has low hemoglobin ( 6.6). MCV is 65. He received 1 unit of blood. No other complaints. Review of Systems General: Unremarkable Eyes: Unremarkable ENT: Unremarkable Respiratory: Unremarkable Cardiovascular: Unremarkable Gastrointestinal: Unremarkable Genitourinary: Unremarkable Musculoskeletal: Unremarkable Integumentary: Unremarkable Neurological: Unremarkable Lymphatics: Unremarkable Physical Examination - Vital Signs Temperature: 97.7 F Blood Pressure: 158/86 Pulse: 63 Respirations: 18 Pulse Ox (%): 97 - Physical Exam General: Alert, In no apparent distress, Oriented x3 HEENT: Atraumatic, Normocephalic, PERRLA Neck: Supple, 2+ carotid pulse no bruit Respiratory: Clear to auscultation bilaterally, Normal air movement Cardiovascular: No edema, Normal pulses, Regular rate/rhythm, Normal S1 S2 Capillary refill: <2 Seconds Gastrointestinal: Normal bowel sounds, Soft and benign, Non-distended Musculoskeletal: No clubbing, No swelling Integumentary: No rashes, No breakdown Neurological: Normal speech, Normal strength at 5/5 x4 extr, Normal tone, Sensation intact Lymphatics: No axilla or inguinal lymphadenopathy - Studies Laboratory Data (last 24 hrs) 10/30/23 10/30/23 21:04 21:04 WBC 3.30 L Hgb 6.6 L Hct 20.8 L Plt Count 193 Sodium 135 L Potassium 3.8 BUN 32 H Creatinine 2.27 H Glucose 88 Total Bilirubin 0.6 AST 17 ALT 21 Alkaline Phosphatase 102 Assessment And Plan - Plan Angioedema: Due to lisinopril. Will stop lisinopril. Pt received IV steroid, IV Pepcid, Benadryl in the ER. Will monitor. No more swelling. Essential hypertension: Will continue amlodipine. No more lisinopril. Iron def anemia: Hgb is 6.6 -> 7.6. MCV is 65. Will give iron infusion. Monitor H/H. Leukopenia: WBC is 1.7<- 3.3. Will monitor. Chronic kidney disease stage III: Stable. Cr is 2.17<- 2.27. Will continue IVF, avoid nephrotoxins, and monitor renal function. DM type II: Continue accuchek, SSI, and ADA diet. DVT ppx: SCD Dispo: pending hospital course.
[2023-10-31] MEDS: SOD FERRIC GLUC COMPLX/SUCROSE 250 MG in NA CHLORIDE 0.9% 250 ML IV SCH (14:43)
[2023-10-31] MEDS ORDERED: carvediloL 12.5 MG TAB PO SCH (21:00)
[2023-10-31] MEDS ORDERED: HYDRALAZINE HCL 25 MG TABLET PO SCH (21:00)
[2023-11-01 03:41] LABS: Absolute Lymphocytes (CBC) 0.8 K/uL (0.7-4.9); Absolute Monocytes 0.7 K/uL (0.1-1.3); Absolute Neutrophil 2.9 K/uL (1.8-8.0); Basophils % 0.5 % (0-1.3); Eosinophils % 0.7 % (0-4.4); Hematocrit 21.8 % (39.6-49.0); Hemoglobin 6.9 g/dL (13.6-17.9); Lymphocytes % 17.5 % (15.3-44.8); MCH 22.1 pg (27.0-35.0); MCHC 31.7 g/dL (32.0-36.0); MCV 69.7 fL (80-100); MPV 7.5 fL (7.6-11.3); Monocytes % 14.8 % (3.3-12.3); Neutrophils % 66.5 % (41.7-73.7); Nucleated Red Blood Cells % 0.1 % (0-0); Platelets 208 thou/uL (152-406); RBC Red Blood Cell Count 3.13 M/uL (4.33-5.43); Red Cell Distribution Width 20.2 % (12.1-15.2)
[2023-11-01 04:00] LABS: Anion Gap 8.1 mEq/L (5.0-15.0); Potassium 4.1 mEq/L (3.5-5.1)
[2023-11-01 05:59] VITALS: BMI 39.1
[2023-11-01] MEDS ORDERED: SODIUM CHLORIDE 0.9% 10ML INJ IV PRN (07:47)
[2023-11-01] MEDS: predniSONE 20 MG TAB PO SCH (08:59)
[2023-11-01] MEDS: PANTOPRAZOLE 40 MG INJ IVP SCH (08:59)
--- NOTE | 2023-11-01 11:35 | P.PN ---
Subjective Date of Service: 11/01/23 Chief Complaint: Swollen lip and tongue Pt is resting comfortably in bed. The tongue and lip swelling resolved. Pt has low hemoglobin ( 6.9 <- 7.7<- 6.6) s/p 1 unit of blood. MCV is 65. He is also getting iron infusion for iron def anemia. No other complaints. Review of Systems General: Unremarkable Eyes: Unremarkable ENT: Unremarkable Respiratory: Unremarkable Cardiovascular: Unremarkable Gastrointestinal: Unremarkable Genitourinary: Unremarkable Musculoskeletal: Unremarkable Integumentary: Unremarkable Neurological: Unremarkable Lymphatics: Unremarkable Physical Examination - Vital Signs Temperature: 97.8 F Blood Pressure: 151/91 Pulse: 71 Respirations: 16 Pulse Ox (%): 99 - Physical Exam General: Alert, In no apparent distress, Oriented x3 HEENT: Atraumatic, Normocephalic, PERRLA Neck: Supple, 2+ carotid pulse no bruit, JVD not distended Respiratory: Clear to auscultation bilaterally, Normal air movement Cardiovascular: No edema, Normal pulses, Regular rate/rhythm, Normal S1 S2 Capillary refill: <2 Seconds Gastrointestinal: Normal bowel sounds, Soft and benign, Non-distended Musculoskeletal: No clubbing, No swelling, No contractures Integumentary: No rashes, No breakdown Neurological: Normal speech, Normal strength at 5/5 x4 extr, Normal tone, Sensation intact Lymphatics: No axilla or inguinal lymphadenopathy Assessment And Plan - Plan Angioedema: resolved. Due to lisinopril. Will stop lisinopril. Pt received IV steroid, IV Pepcid, Benadryl in the ER. Will monitor. No more swelling. Essential hypertension: Will continue amlodipine. No more lisinopril. Iron def anemia: Hgb is 6.6 -> 7.6-> 6.9 s/p 1 unit of blood. Will give 2 more units of blood. Pt denies any GI bleed or hematuria. MCV is 65. Will give iron infusion. Monitor H/H. Pt had endoscopy in Jun, 2022. Will consult GI. Leukopenia: WBC is 4.4<- 1.7<- 3.3. Will monitor. Chronic kidney disease stage III: Stable. Cr is 2.19<- 2.17<- 2.27. Will continue IVF, avoid nephrotoxins, and monitor renal function. DM type II: Continue accuchek, SSI, and ADA diet. DVT ppx: SCD Dispo: pending hospital course.
[2023-11-01] MEDS: NA CHLORIDE 0.9% 250 ML ONE ×2 (17:52→21:49)
--- NOTE | 2023-11-01 18:06 | PN ---
Date of Progress Note: 11/01/2023 Subjective: The patient was seen and examined at bedside. He feels well. Denies any other complain ts. Objective: Vital Signs: Have been reviewed and are stable. General: He appears in no acute distress. Lungs: Clear to auscultation. Abdomen: Soft and nontender. Extremities: Chronic edema but nothing acute. Laboratory Data: Showing creatinine stable at 2.19, sodium improving to 137, BUN of 37. Hemoglobin has dropped with hemoglobin of 6.9 and hematocrit 21.8. Current Medications: Have been reviewed. Impression: 1.Acute on chronic renal insufficiency secondary possibly from mild ATN, cardiorenal syndrome, curre ntly stable renal function. 2.Angioedema related to ZOYA inhibitor usage that has been stopped and angioedema seems to have resol marla. 3.Severe iron deficiency anemia. The patient has been worked up as outpatient with colonoscopy and endoscopy with Dr. Schrader previously and his colonoscopy was complicated by bleeding. The patient has had workup and has been referred to Hematology/Oncology also as outpatient. Continue IV iron and monitor hemoglobin levels closely. Plan: Overall the patient is clinically stable. CHF is compensated. Continue Lasix and current med ications. Avoid ZOYA inhibitors and ARBs. Would list them as allergy and monitor hemoglobin levels closely. Plan was discussed with Dr. Reed and we will continue to monitor. VV/MODL Voice ID: [id number] Report ID: [id number]
[2023-11-02] MEDS: HYDRALAZINE HCL 20 MG/ML VIAL IV ONE (00:04)
[2023-11-02] MEDS ORDERED: HYDRALAZINE HCL 20 MG/ML VIAL IV PRN (02:20)
[2023-11-02 04:21] LABS: Absolute Eosinophils 0.1 K/uL (0-0.5); Absolute Lymphocytes (CBC) 0.8 K/uL (0.7-4.9); Absolute Monocytes 0.5 K/uL (0.1-1.3); Absolute Neutrophil 3.6 K/uL (1.8-8.0); Basophils % 0.8 % (0-1.3); Eosinophils % 1.4 % (0-4.4); Hematocrit 26.8 % (39.6-49.0); Hemoglobin 8.7 g/dL (13.6-17.9); MCHC 32.3 g/dL (32.0-36.0); MCV 71.2 fL (80-100); MPV 7.2 fL (7.6-11.3); Monocytes % 9.4 % (3.3-12.3); Neutrophils % 72.4 % (41.7-73.7); Nucleated Red Blood Cells % 0.1 % (0-0); Platelets 223 thou/uL (152-406); RBC Red Blood Cell Count 3.77 M/uL (4.33-5.43); Red Cell Distribution Width 21.9 % (12.1-15.2)
[2023-11-02 04:35] LABS: Anion Gap 7.7 mEq/L (5.0-15.0); Potassium 3.7 mEq/L (3.5-5.1)
[2023-11-02 05:02] VITALS: O2SAT 93
[2023-11-02] MEDS: POTASSIUM CL SA 10 MEQ TAB PO ONE (06:21)
[2023-11-02] MEDS ORDERED: AMLODIPINE 5 MG TAB PO SCH (09:00)
--- NOTE | 2023-11-02 11:09 | P.DS ---
Admission Date: 11/01/23 Discharge Date: 11/02/23 Discharge Condition: GOOD Reason for Admission: Swollen lip and tongue Brief History of Present Illness: 53-year-old gentleman with a history of hypertension, chronic kidney disease, chronic anemia presented to the emergency department with a complaint of sudden swelling of the lip and tongue. No known precipitating cause. Patient stated he ate some salad with ranch dressing at lunch and barbecue pork at dinner. Patient's symptoms occurred after dinner today. Patient evaluated in the ED and noted to have swollen left and left half of tongue swollen. Noted he takes ZOYA inhibitor for hypertension. Patient symptoms suspected to be related to ZOYA inhibitor related angioedema. Patient given IV steroid, Pepcid, Benadryl in the ED. Symptoms partially improved. He is hospitalized for further management. Hospital Course: Pt is a 53 yo male with past medical history of hypertension, chronic kidney disease, and chronic anemia who presented to the ER with sudden swelling of the lip and tongue. Pt was taking lisinopril at home. He reported eating salad with ranch dressing at lunch and barbecue pork at dinner. Patient's symptoms occurred after the dinner. On admission, we stopped the lisinopril. Pt was advised to stop taking lisinopril at home. ER physician gave IV steroid, Pepcid, Benadryl in the ED. The symptoms improved. We gave 1 unit of blood and iron infusion due to iron def anemia. His hgb dropped to 6.9 after 1 unit of blood. We gave 2 more units of blood and Hemoglobin improved to 8.7. Pt was advised to follow up with Dr. Schrader and Dr. Saul. Dr. Schrader has done extensive work up for the anemia. Pt need to follo wup with expanded function dental assistant. We continued home med for other chronic medical problems. Martínez angioedema resolved and pt was advised to take ferrous sulfate at home. He was in NAD prior to discharge. Vital Signs/Physical Exam: Temp Pulse Resp BP Pulse Ox 99.6 F 84 18 185/84 H 98 11/02/23 08:00 11/02/23 08:00 11/02/23 08:00 11/02/23 08:00 11/02/23 08:00 Laboratory Data at Discharge: WBC 5.00 thou/uL (4.3-10.9) 11/02/23 03:43 Hgb 8.7 g/dL (13.6-17.9) L D 11/02/23 03:43 Hct 26.8 % (39.6-49.0) L 11/02/23 03:43 Plt Count 223 thou/uL (152-406) 11/02/23 03:43 Sodium 135 mEq/L (136-145) L 11/02/23 03:43 Potassium 3.7 mEq/L (3.5-5.1) 11/02/23 03:43 BUN 37 mg/dL (7-18) H 11/02/23 03:43 Creatinine 2.02 mg/dL (0.70-1.30) H 11/02/23 03:43 Glucose 94 mg/dL (74-106) 11/02/23 03:43 Phosphorus 4.1 mg/dL (2.5-4.9) 10/31/23 07:35 Magnesium 2.6 mg/dL (1.6-2.4) H 10/31/23 07:35 Total Bilirubin 0.6 mg/dL (0.2-1.0) 10/30/23 21:04 AST 17 U/L (15-37) 10/30/23 21:04 ALT 21 U/L (16-61) 10/30/23 21:04 Alkaline Phosphatase 102 U/L (45-117) 10/30/23 21:04 Home Medications: Carvedilol [Coreg] 12.5 mg PO BID #0 tablet 02/18/12 Aspirin [Low Dose Aspirin EC] 81 mg PO DAILY 06/07/22 Furosemide [Lasix*] 20 mg PO BIDL 06/07/22 Glipizide [Glipizide ER] 5 mg PO DAILY 06/07/22 Hydralazine HCl 100 mg PO BID 06/07/22 Amlodipine [Norvasc*] 5 mg PO DAILY 06/13/22 Ferrous Sulfate [Feosol] 325 mg PO BID 30 Days #60 tab 11/02/23 New Medications: Ferrous Sulfate [Feosol] 325 mg PO BID 30 Days #60 tab Physician Discharge Instructions: Continue ad eric activity. Take ferrous sulfate 325mg po BID and other home meds. Stop taking lisinopril. Follow up with Dr. Schrader, expanded function dental assistant (Dr. Saul) and PCP within 2 weeks. Diet: AHA Activity: Ad eric Followup: Rosalia Mathias MD [Primary Care Provider] - Yaw Schrader MD [ACTIVE - CAN ADMIT] - Autumn Tucker MD [ACTIVE - CAN ADMIT] -
[2023-11-02 14:14] VITALS: BP 167/78; TEMP 98.7
== END 2023-11-02 13:45 | disposition home health service (06) | DRG 915 ==
LOC: ER 20:44 → ERHOLD 23:28 → 4TH 10-31 00:09 → 2ND 10-31 00:16 → OBSVTOIN 11-01 12:20
PROVIDERS: ADMIT Internal Medicine; ATTEND Hospitalist
PROC: 30233N1 Transfusion of Nonautologous Red Blood Cells into Peripheral Vein, Percutaneous Approach (ICD-10-PCS; principal; 2023-11-02)
DX: T78.3XXA Angioneurotic edema, initial encounter (principal); N17.0 Acute kidney failure with tubular necrosis; I50.32 Chronic diastolic (congestive) heart failure; I13.0 Hypertensive heart and chronic kidney disease with heart failure and stage 1 through stage 4 chronic kidney disease, or unspecified chronic kidney disease; N18.32 Chronic kidney disease, stage 3b; E11.22 Type 2 diabetes mellitus with diabetic chronic kidney disease; D63.1 Anemia in chronic kidney disease; D50.9 Iron deficiency anemia, unspecified; D72.819 Decreased white blood cell count, unspecified; T44.5X5A Adverse effect of predominantly beta-adrenoreceptor agonists, initial encounter; Z79.02 Long term (current) use of antithrombotics/antiplatelets; Z79.82 Long term (current) use of aspirin; Z79.84 Long term (current) use of oral hypoglycemic drugs; Z79.899 Other long term (current) drug therapy
CPT/HCPCS: 36415; 36430; 71045; 74176; 76377; 80048; 80053; 81001; 82607; 82728; 83540; 83735; 84100; 84466; 85025; 85044; 86850; 86900; 86901; 86920; 94760; 99285; C9113; G0378; J0360; J1100; J1200; J2916; J2919; J7030; J7050; J7512; J7613; J7644; P9016